=== PATIENT | male | born 1950 | race Caucasian/White ===

== ENCOUNTER → 2016-08-10 | Day surgery (SDC) | payer OTHER, MEDICARE ==
[~2016-08-10] VITALS: Ht 177.8 cm; Wt 60.0 kg
[~2016-08-10] MED LIST: ACETAMINOPHEN/HYDROcodone 325 MG/5 MG TAB PO PRN; AMLO5TAB2 PO; AMPICILLIN 1 GM/NS 100 ML IV SCH; DEXA2TAB PO; DEXAMETHASONE SOD PHOS 4 MG/ML VIAL ONE; DIAZ5 PO; DO NOT ADM ANY ANTICOAGULANT DRUGS XX PRN; FAMOTIDINE 20 MG/2 ML VIAL ONE; FENT100D T-DERMAL; FERR325T PO; FLUC100T2 PO; GENTAMICIN/SOD CHL 80 MG/100 ML IV SCH; GETGO ROLLING W1 MI1; HYDROmorphone HCL PF 2 MG/ML VIAL ONE; INSULIN HUMAN REGULAR 1,000 UNITS/10 ML VIAL SQ PRN; IOHEXOL 300 MG/ML 50 ML BTL (for RAD DIAG) OTHER ONE; LACTATED RINGER'S 1000 ML IV SCH; MEGE40S PO; METO25TA3 PO; METOPROLOL TARTRATE 25 MG TAB PO PRN; MIDAZOLAM HCL 2 MG/2 ML VIAL ONE; NITR2OIN TOPICAL; OMEP20TA PO; ONDANSETRON HCL 4 MG/2 ML VIAL IV PUSH PRN; ONDANSETRON HCL 4 MG/2 ML VIAL ONE; OXYC-396 PO; PROPOFOL 200 MG/20 ML AMP IV ONE; PROT40TA PO; SODIUM CHLORID 0.9% 500 ML IV SCH; SUGAMMADEX SODIUM 200 MG/2 ML VIAL IV PUSH ONE; fentaNYL CITRATE 250 MCG/5 ML AMP ONE
[2016-08-10 09:30] LABS: AUTOMATED NEUTROPHIL # 14.4 TH/MM3 (1.8-7.7); BASOPHIL % 0.2 % (0.0-2.0); EOSINOPHIL # 0.1 TH/MM3 (0-0.4); EOSINOPHIL % 0.3 % (0.0-4.0); LYMPH % 10.6 % (9.0-44.0); LYMPHOCYTE # 1.9 TH/MM3 (1.0-4.8); MEAN CELL VOLUME 82.3 FL (80.0-100.0); MEAN CORPUSCULAR HEMOGLOBIN 27.8 PG (27.0-34.0); MEAN CORPUSCULAR HGB CONC 33.7 % (32.0-36.0); NEUT % 80.9 % (16.0-70.0); PLATELET COUNT 408 TH/MM3 (150-450); RED BLOOD COUNT 3.77 MIL/MM3 (4.50-5.90); RED CELL DISTRIBUTION WIDTH 17.8 % (11.6-17.2); WHITE BLOOD COUNT 17.8 TH/MM3 (4.0-11.0)
[2016-08-10 09:31] LABS: HEMO FLAGS AUTO DIFF
[2016-08-10 09:38] VITALS: BP 156/78; PULSE 99; RESP 18; TEMP 97.7; O2SAT 97
[2016-08-10 10:04] LABS: MYELOCYTES 2 % (0-0); NEUTROPHIL # MANUAL DIFF 14.8 TH/MM3 (1.8-7.7); POLYS (SEG NEUTROPHILS) 81 % (16-70); SCAN/DIFF FINAL DIFF MANUAL; WBC DIFF SAMPLE 100
[2016-08-10 10:05] LABS: BICARBONATE 24.5 MEQ/L (21.0-32.0); PLATELET ESTIMATE SMEAR HIGH (NORMAL); PLATELET MORPHOLOGY NORMAL (NORMAL); POTASSIUM 3.9 MEQ/L (3.5-5.1)
[2016-08-10 12:42] VITALS: BP 120/62; PULSE 84; RESP 16; TEMP 99.1; O2SAT 93
--- NOTE | 2016-08-12 19:41 | MP ---
cc: RAMA TALBTO DATE OF SURGERY: 08/10/2016. PREOPERATIVE DIAGNOSIS: Left hydronephrosis with a retained stent in place and a solitary functioning kidney. POSTOPERATIVE DIAGNOSIS: Left hydronephrosis with a retained stent in place and a solitary functioning kidney. OPERATIVE PROCEDURE PERFORMED: Cystoscopy, left retrograde, left double-J stent insertion. SURGEON: Rama Talbot MD. ANESTHESIA: General LMA FLUIDS: One liter crystalloid. ESTIMATED BLOOD LOSS: No blood loss. COMPLICATIONS: No complications. DISPOSITION: He tolerated the procedure well and was transferred to the recovery room in stable condition. DRAINS: A 24 cm left double-J stent. INDICATIONS FOR THE PROCEDURE: Rajendra Henry is a 66-year-old male with history of colon cancer which involved the right kidney. He underwent colon resection by Dr. Siegel with a right nephrectomy by myself approximately a year and half ago. He does have a history of chronic renal insufficiency of the left kidney and has been stent-dependent in the past. He is here today to undergo cystoscopy and left double-J stent change. The risks and benefits were discussed including bleeding and infection and he was willing to proceed. DESCRIPTION OF THE PROCEDURE IN DETAIL: The patient was brought to the operating room and identified by myself as Rajendra Henry. He was placed in the dorsal spine position and prepped and draped in the usual sterile fashion. He received pre-procedure antibiotics and general LMA anesthesia was administered. A 22-Ugandan cystoscope was inserted in the bladder. A roberts cystoscopy did not show any abnormalities in the bladder. Using alligator grasper, the stent was grasped and brought to the urethral meatus. An 035 Sensor wire was then passed through the stent leaving the wire in good position. The stent was removed. A 5-Ugandan open-ended catheter was inserted over a wire and then the wire was removed. Retrograde study was showing filling of the ureter with some dilatation of the collecting system and hydronephrosis noted. The contrast material was having some trouble getting across the UPJ area. Once that was done, then the 035 Sensor wire was passed through the open-end catheter leaving a good curl in the kidney. The 5-Ugandan open catheter was then removed. The cystoscope was back-loaded over the wire and a 24 cm 6-Ugandan left double-J stent was placed with good curl in the kidney and a good curl in the bladder. The bladder was evacuated. He tolerated the procedure well, was awoken and transferred to the recovery room in stable addition. The patient will follow up in the office in six weeks and will obtain a renal scan at that time to determine function of that left kidney and we will decide at that time if stent removal is prudent to do at that time. Rama OSEI/CARLENE /11:21 AM /7:31 PM
== END | disposition home or self-care (01) ==
LOC: HSDC 08:37
PROVIDERS: ATTEND Urology
DX: N13.30 Unspecified hydronephrosis (principal); Q60.0 Renal agenesis, unilateral
CPT/HCPCS: 00910; 52332; 74420; 80048; 85007; 85027; C1769; J0290; J1100; J1580; J2250; J2405; J3010; J7120; Q9967; J1170

== ENCOUNTER 2016-10-24 12:18 | Inpatient (IN) | payer MEDICARE, OTHER ==
[2016-10-24] VITALS (10 sets, daily range): BP systolic 106–144; BP diastolic 60–78; PULSE 95–106; RESP 16–18; TEMP 98–98.7; O2SAT 98–100
[~2016-10-24] VITALS: Ht 177.8 cm; Wt 54.7 kg
[~2016-10-24 12:18] MED LIST changes: -ACETAMINOPHEN/HYDROcodone 325 MG/5 MG TAB PO PRN; -AMPICILLIN 1 GM/NS 100 ML IV SCH; -DEXAMETHASONE SOD PHOS 4 MG/ML VIAL ONE; -DO NOT ADM ANY ANTICOAGULANT DRUGS XX PRN; -FAMOTIDINE 20 MG/2 ML VIAL ONE; -FERR325T PO; -FLUC100T2 PO; -GENTAMICIN/SOD CHL 80 MG/100 ML IV SCH; -GETGO ROLLING W1 MI1; -HYDROmorphone HCL PF 2 MG/ML VIAL ONE; -INSULIN HUMAN REGULAR 1,000 UNITS/10 ML VIAL SQ PRN; -IOHEXOL 300 MG/ML 50 ML BTL (for RAD DIAG) OTHER ONE; -LACTATED RINGER'S 1000 ML IV SCH; -METO25TA3 PO; -METOPROLOL TARTRATE 25 MG TAB PO PRN; -MIDAZOLAM HCL 2 MG/2 ML VIAL ONE; -NITR2OIN TOPICAL; -ONDANSETRON HCL 4 MG/2 ML VIAL IV PUSH PRN; -ONDANSETRON HCL 4 MG/2 ML VIAL ONE; -PROPOFOL 200 MG/20 ML AMP IV ONE; -PROT40TA PO; -SODIUM CHLORID 0.9% 500 ML IV SCH; -SUGAMMADEX SODIUM 200 MG/2 ML VIAL IV PUSH ONE; -fentaNYL CITRATE 250 MCG/5 ML AMP ONE
[2016-10-24] MEDS ORDERED: SODIUM CHLOR 0.9% 1000 ML INJ 1,000 ML IV SCH (13:04)
[2016-10-24] MEDS ORDERED: ONDANSETRON HCL 4 MG/2 ML VIAL IVP ONE (13:15)
[2016-10-24] MEDS ORDERED: HYDROmorphone HCL PF 1 MG/ML VIAL IV ONE (13:15)
[2016-10-24] MEDS ORDERED: PANTOPRAZOLE SODIUM 40 MG VIAL IVP ONE (13:15)
[2016-10-24 13:25] LABS: AUTOMATED NEUTROPHIL # 16.4 TH/MM3 (1.8-7.7); BASOPHIL % 0.1 % (0.0-2.0); LYMPH % 4.1 % (9.0-44.0); LYMPHOCYTE # 0.7 TH/MM3 (1.0-4.8); MEAN CELL VOLUME 70.9 FL (80.0-100.0); MEAN CORPUSCULAR HEMOGLOBIN 21.7 PG (27.0-34.0); MEAN CORPUSCULAR HGB CONC 30.6 % (32.0-36.0); MONO % 4.3 % (0.0-8.0); NEUT % 91.5 % (16.0-70.0); PLATELET COUNT 581 TH/MM3 (150-450); RED BLOOD COUNT 2.22 MIL/MM3 (4.50-5.90); WHITE BLOOD COUNT 17.9 TH/MM3 (4.0-11.0)
[2016-10-24 13:27] LABS: HEMO FLAGS AUTO DIFF
[2016-10-24 13:29] LABS: HEMATOCRIT 15.7 % (39.0-51.0)
[2016-10-24 13:33] LABS: APTT (PATIENT) 27.6 SEC (24.3-30.1); PROTHROMBIN TIME - PATIENT 10.6 SEC (9.8-11.6)
[2016-10-24 13:40] LABS: ANION GAP 10 MEQ/L (5-15); AST (GOT) 7 U/L (15-37); BICARBONATE 25.8 MEQ/L (21.0-32.0); BLOOD UREA NITROGEN 32 MG/DL (7-18); CHLORIDE 95 MEQ/L (98-107); GLOMERULAR FILTRATION RATE 40 ML/MIN (>89); POTASSIUM 3.5 MEQ/L (3.5-5.1); SODIUM (NA) 131 MEQ/L (136-145)
[2016-10-24 13:43] LABS: ALKALINE PHOSPHATASE 85 U/L (45-117); ALT (GPT) 12 U/L (12-78); TOTAL BILIRUBIN ADULT 0.2 MG/DL (0.2-1.0)
[2016-10-24] MEDS ORDERED: LIDOCAINE VISCOUS 2% SOLN 15 ML UDC PO ONE (13:45)
[2016-10-24] MEDS ORDERED: HYDROmorphone HCL PF 1 MG/ML VIAL IVS ONE (13:45)
[2016-10-24] MEDS ORDERED: ALUMINUM/MAGNESIUM/SIMETH 30 ML CUP PO ONE (13:45)
--- NOTE | 2016-10-24 14:10 | PD ---
HPI Chief Complaint: Dizziness Time Seen by Provider: 13:57 Travel History International Travel<30 days: No Contact w/Intl Traveler<30days: No Traveled to known affect area: No History of Present Illness HPI 66-year-old male presents to the emergency department complaining of multiple complaints. He states he's been feeling progressively more weak since August of this past year. Patient has a history of colon cancer with a right sided hemicolectomy in August 2014, and he reports he took out his right kidney as well. In August of this year he had a stent replaced. He states since that time he has not really been doing very well. He started having profound weakness, start losing his balance. Over the past couple days she's gotten weak to where he can't walk. He fell to the floor today. He is also having increased dizziness and vertigo when he stands. He has for the past several days been having epigastric pain and left-sided chest pain. He's not had these symptoms before. He has been anemic before card blood transfusion. Patient denies any change in his bowel movements or dark black stools. Patient does take 2 mg of dexamethasone daily for back problems, and has for months to a year or 2. History Past Medical History Narrative Medical History of colon cancer, right colectomy, Hypertension and peripheral vascular disease Chronic back pain, on daily steroids Tetanus Vaccination: > 5 Years Influenza Vaccination: Yes Social History Alcohol Use: No Tobacco Use: Yes (1/2 PACK PER DAY) Allergies-Medications (Allergen,Severity, Reaction): Coded Allergies: Levaquin (Verified Allergy, Severe, MUSCLE WEAKNESS AND BLURRED VISION, ) Morphine (Verified Allergy, Severe, hallucinating, 10/24/16) Sulfa (Verified Allergy, Severe, nausea, 10/24/16) Reported Meds & Prescriptions Reported Meds & Active Scripts Active Reported Fentanyl Patch 72 HR (Fentanyl) 100 Mcg/Hr Patch 100 Mcg T-DERMAL Q72H Remove old patch when new one placed. Omeprazole 20 Mg Tab 20 Mg PO DAILY Dexamethasone 2 Mg Tab 2 Mg PO DAILY Oxycodone (Oxycodone HCl) 20 Mg Tab 20 Mg PO Q2HR PRN Megace Liq (Megestrol Acetate) 40 Mg/Ml Susp 10 Ml PO BID Amlodipine (Amlodipine Besylate) 5 Mg Tab 5 Mg PO DAILY Review of Systems Except as stated in HPI: all other systems reviewed are Neg Physical Exam Narrative GENERAL: 66-year-old man, chronically ill-appearing, pale. SKIN: Focused skin assessment warm/dry. Marked conjunctival pallor. HEAD: Atraumatic. Normocephalic. EYES: Pupils equal and round. No scleral icterus. No injection or drainage. ENT: No nasal bleeding or discharge. Mucous membranes pink and moist. NECK: Trachea midline. No JVD. CARDIOVASCULAR: Regular rate and rhythm. No murmur appreciated. RESPIRATORY: No accessory muscle use. Clear to auscultation. Breath sounds equal bilaterally. GASTROINTESTINAL: Abdomen soft, non-tender, nondistended. Hepatic and splenic margins not palpable. MUSCULOSKELETAL: No obvious deformities. No edema. NEUROLOGICAL: Awake and alert. No obvious cranial nerve deficits. Motor grossly within normal limits. Normal speech. RECTAL: Dark black stool. Guaiac positive. Data Data Last Documented VS Vital Signs Date Time Temp Pulse Resp B/P Pulse Ox O2 Delivery O2 Flow Rate FiO2 10/24/16 13:48 98 18 128/64 98 Room Air 10/24/16 12:32 98.1 Orders Electrocardiogram (10/24/16 ) Complete Blood Count With Diff (10/24/16 13:04) Comprehensive Metabolic Panel (10/24/16 13:04) Lipase (10/24/16 13:04) Prothrombin Time / Inr (Pt) (10/24/16 13:04) Act Partial Throm Time (Ptt) (10/24/16 13:04) Type And Screen (10/24/16 13:04) Red Blood Cells (Rbc) (10/24/16 13:04) Ecg Monitoring (10/24/16 13:04) Iv Access Insert/Monitor (10/24/16 13:04) Oximetry (10/24/16 13:04) Ondansetron Inj (Zofran Inj) (10/24/16 13:15) Pantoprazole Inj (Protonix Inj) (10/24/16 13:15) Sodium Chlor 0.9% 1000 Ml Inj (Ns 1000 M (10/24/16 13:04) Sodium Chloride 0.9% Flush (Ns Flush) (10/24/16 13:15) Hydromorphone Pf Inj (Dilaudid Pf Inj) (10/24/16 13:15) Hydromorphone Pf Inj (Dilaudid Pf Inj) (10/24/16 13:45) Al-Mag Hy-Si 40-40-4 Mg/Ml Liq (Mag-Al P (10/24/16 13:45) Lidocaine 2% Viscous (Xylocaine 2% Visco (10/24/16 13:45) Blood Product Administration .UPON TRANSFUSION (10/24/16 13:38) Troponin I (10/24/16 13:40) Consult Gastroenterology (10/24/16 ) Labs Laboratory Tests Test 10/24/16 13:00 White Blood Count 17.9 TH/MM3 Red Blood Count 2.22 MIL/MM3 Hemoglobin 4.8 GM/DL Hematocrit 15.7 % Mean Corpuscular Volume 70.9 FL Mean Corpuscular Hemoglobin 21.7 PG Mean Corpuscular Hemoglobin 30.6 % Concent Red Cell Distribution Width 17.0 % Platelet Count 581 TH/MM3 Mean Platelet Volume 7.1 FL Neutrophils (%) (Auto) 91.5 % Lymphocytes (%) (Auto) 4.1 % Monocytes (%) (Auto) 4.3 % Eosinophils (%) (Auto) 0.0 % Basophils (%) (Auto) 0.1 % Neutrophils # (Auto) 16.4 TH/MM3 Lymphocytes # (Auto) 0.7 TH/MM3 Monocytes # (Auto) 0.8 TH/MM3 Eosinophils # (Auto) 0.0 TH/MM3 Basophils # (Auto) 0.0 TH/MM3 CBC Comment AUTO DIFF Prothrombin Time 10.6 SEC Prothromb Time International 1.0 RATIO Ratio Activated Partial 27.6 SEC Thromboplast Time Sodium Level 131 MEQ/L Potassium Level 3.5 MEQ/L Chloride Level 95 MEQ/L Carbon Dioxide Level 25.8 MEQ/L Anion Gap 10 MEQ/L Blood Urea Nitrogen 32 MG/DL Creatinine 1.73 MG/DL Estimat Glomerular Filtration 40 ML/MIN Rate Random Glucose 175 MG/DL Calcium Level 8.5 MG/DL Total Bilirubin 0.2 MG/DL Aspartate Amino Transf 7 U/L (AST/SGOT) Alanine Aminotransferase 12 U/L (ALT/SGPT) Alkaline Phosphatase 85 U/L Total Protein 6.4 GM/DL Albumin 2.4 GM/DL Lipase 700 U/L Blood Type B POSITIVE Antibody Screen NEGATIVE Crossmatch Leukocyte-Reduced Red Blood Cells Blood Bank Comment MDM Medical Decision Making Medical Screen Exam Complete: Yes Emergency Medical Condition: Yes Interpretation(s) My review of EMS EKG: Widespread ST depression suggestive of ischemia, sinus tachycardia rate of 140s or so. My review of EKG here: Sinus tachycardia rate 100, normal axis, normal intervals , widespread more mild ST depressions, still suggestive of ischemia. LABS: CBC remarkable for mild leukocytosis, hemoglobin 4.8 CMP remarkable for elevated BUN/creatinine 32/1.73 Lipase 700 Troponin Coags unremarkable Differential Diagnosis Marked anemia, gastritis, peptic ulcer disease, malignancy, spinal cord compression, sepsis, other Narrative Course Medical decision making This 66-year-old male presents emergency department multiple complaints including mostly generalized weakness and falls dizziness and now some chest pain. Unclear if this chest pain is from gastritis and peptic ulcer disease or may represent myocardial ischemia in the setting of severe anemia. Hemoglobin confirms severe anemia as evident on exam. Guaiac is positive making gastritis or peptic ulcer disease related to his dexamethasone used to most likely culprit. We'll give transfusion, PPI, fluids, will admit patient. I spoke with Dr. Daily 2, GI for routine consult. Diagnosis Primary Impression: Upper GI bleed Additional Impressions: Severe anemia Chest pain Rajendra Herrera MD Oct 24, 2016 14:09
[2016-10-24 14:11] LABS: SCAN/DIFF AUTO DIFF CONFIRMED
[2016-10-24] MEDS: SODIUM CHLORIDE 0.9% FLUSH 10 ML FLUSH IVF PRN (14:14)
--- NOTE | 2016-10-24 16:18 | RADRPT ---
EXAM DATE/TIME: 10/24/2016 14:46 [facility] COMPARISON: CHEST SINGLE AP, May 12, 2015, 15:51. INDICATIONS : Chest pain, short of breath. MEDICAL HISTORY : colon/rectal cancer, right kidney cancer SURGICAL HISTORY : right kidney removed ENCOUNTER: Initial ACUITY: 2 days PAIN SCORE: Non-responsive. LOCATION: Bilateral chest FINDINGS: There is a questionable non-consolidative infiltrate in the right infrahilar region. There is a foca l rounded masslike opacity in the right midlung measuring 2.0 cm which is a new finding since prior c hest x-ray 05/12/15. The left lung is clear. The heart is normal size. Both hemidiaphragms are well delineated. Prominent degenerative changes in the a.c. joints, stable. CONCLUSION: 1. There is a new 2 cm mass in the right midlung. 2. Possible non-consolidative infiltrate right infrahilar region. Antione Rodríguez MD on October 24, 2016 at 16:15 Board Certified Radiologist. This report was verified electronically.
[2016-10-24 16:52] LABS: FERRITIN 20 NG/ML (26-388); TRANSFERRIN IRON PROFILE 212 MG/DL (200-360)
--- NOTE | 2016-10-24 17:51 | PD.CONS ---
HPI History of Present Illness This is a 66 year old wi complicated by development of an abscess and therefore he did not receive th a hx with a hx of stage IV Colon Cancer, s/p resection in 2014. His postoperative course was complicated by development of an abscess and therefore he did not receive adjuvant therapy. He was then found to have recurrent disease and had elected not to receive chemotherapy and was enrolled on hospice care. However, he was then found to have left hydronephrosis with a retained stent in place and a solitary functioning kidney and underwent a cystoscopy, left retrograde, left double-J stent insertion with Dr. Talbot. He has continued to see Dr. Talbot for this. He reports that since his cystoscopy and stent placement in August, he has had generalized weakness and dizziness. This has been worsening since that time. He has been taking dexamethasone at home for back pain, but stopped taking this recently when he started having severe indigestion/heartburn/chest pain. He states that this does not really seem to be related to food or exertion- it comes at any time and sometimes radiates down his arms. He has gradually been losing weight. He reports he has some back pain that he takes pain meds as needed for at home. , he reports that he became more weak and dizzy and fell to the ground (did not lose consciousness). He reports that he and his knew something was wrong and prayed over this and ultimately decided that they wanted him to come to the ER to find out what was going on. He reports that he was on hospice care up until today, when it was revoked so that he could come to the ER. In the ER, he was found to have severe anemia with an HH of 4.8/15.7 on admission. Guaiac was positive in the ER. He denies having any melena, hematochezia, nausea, vomiting. He does report that he has been having severe indigestion that was relieved with dilaudid and GI cocktail in the ER. He states that he needs to find out where the bleeding is coming from and would like to have an endoscopy to find out. However, he would like to discuss this over with his kim to make sure she is okay with this. (Nancy Chawla) PFSH Past Medical History Anxiety Arthritis Kidney disease History of kidney stones Hydronephrosis Stage IV colon cancer History of perinephric abscess Pulmonary nodule Past Surgical History Right hemicolectomy Right nephrectomy Right adrenalectomy Exploratory laparotomy Examined undder anesthesia for right flank abscess Percutaneous drainage of right flank abscess Nephrostomy tube Cystoscopy and stent placement Appendectomy Biopsy Colonoscopy Hernia repair (Nancy Chawla) Coded Allergies: Levaquin (Verified Allergy, Severe, MUSCLE WEAKNESS AND BLURRED VISION, ) Morphine (Verified Allergy, Severe, hallucinating, 10/24/16) Sulfa (Verified Allergy, Severe, nausea, 10/24/16) Medications Allergies Coded Allergies Type Severity Reaction Last Updated Verified Levaquin Allergy Severe MUSCLE WEAKNESS AND BLURRED VISION 10/24/16 Yes Morphine Allergy Severe hallucinating 10/24/16 Yes Sulfa Allergy Severe nausea 10/24/16 Yes Active Scripts Medications Dose Route/Sig Days Date Category Dose Instructions Fentanyl Patch 72 HR (Fentanyl) 100 Mcg/Hr Patch 100 Mcg T-DERMAL Q72H 08/10/16 Reported Remove old patch when new one placed. Omeprazole 20 Mg Tab 20 Mg PO DAILY 08/10/16 Reported Dexamethasone 2 Mg Tab 2 Mg PO DAILY 08/10/16 Reported Oxycodone (Oxycodone HCl) 20 Mg Tab 20 Mg PO Q2HR PRN 05/17/16 Reported Megace Liq (Megestrol Acetate) 40 Mg/Ml Susp 10 Ml PO BID 05/17/16 Reported Amlodipine (Amlodipine Besylate) 5 Mg Tab 5 Mg PO DAILY 05/17/16 Reported Family History Noncontributory Social History 1/2 PPD. No ETOH (Nancy Chawla) Review of Systems Constitutional: COMPLAINS OF: Fatigue, Weight loss, Dizziness, Change in appetite Respiratory: DENIES: Cough Cardiovascular: COMPLAINS OF: Chest pain Gastrointestinal: COMPLAINS OF: Heartburn, DENIES: Abdominal pain, Black stools, Bloody stools, Constipation, Diarrhea, Nausea, Vomiting Musculoskeletal: COMPLAINS OF: Joint pain, Back pain Psychiatric: DENIES: Confusion (Nancy Chawla) GI Exam Vitals I&O Vital Signs Date Time Temp Pulse Resp B/P Pulse Ox O2 Delivery O2 Flow Rate FiO2 10/24/16 17:35 98.5 97 16 131/62 100 10/24/16 16:26 98.0 92 17 110/68 99 10/24/16 15:10 98.1 96 18 106/68 98 Room Air 10/24/16 14:55 98.2 102 18 118/60 98 Room Air 10/24/16 14:16 17 10/24/16 13:48 98 18 128/64 98 Room Air 10/24/16 13:42 17 10/24/16 13:05 18 98 Room Air 10/24/16 12:41 106 17 10/24/16 12:32 98.1 106 18 124/78 99 I/O 10/23/16 10/23/16 10/23/16 10/24/16 10/24/16 10/24/16 07:00 15:00 23:00 07:00 15:00 23:00 Output Total 700 ml Balance -700 ml Output Urine Total 700 ml # Voids 1 # Bowel Movements 0 Imaging Last Impressions Chest X-Ray 10/24/16 0000 Signed Impressions: Service Date/Time: Monday, October 24, 2016 14:46 - CONCLUSION: 1. There is a new 2 cm mass in the right midlung. 2. Possible non-consolidative infiltrate right infrahilar region. Antione Rodríguez MD Laboratory Test 10/24/16 13:00 White Blood Count 17.9 TH/MM3 Red Blood Count 2.22 MIL/MM3 Hemoglobin 4.8 GM/DL Hematocrit 15.7 % Mean Corpuscular Volume 70.9 FL Mean Corpuscular Hemoglobin 21.7 PG Mean Corpuscular Hemoglobin 30.6 % Concent Red Cell Distribution Width 17.0 % Platelet Count 581 TH/MM3 Mean Platelet Volume 7.1 FL Neutrophils (%) (Auto) 91.5 % Lymphocytes (%) (Auto) 4.1 % Monocytes (%) (Auto) 4.3 % Eosinophils (%) (Auto) 0.0 % Basophils (%) (Auto) 0.1 % Neutrophils # (Auto) 16.4 TH/MM3 Lymphocytes # (Auto) 0.7 TH/MM3 Monocytes # (Auto) 0.8 TH/MM3 Eosinophils # (Auto) 0.0 TH/MM3 Basophils # (Auto) 0.0 TH/MM3 CBC Comment AUTO DIFF Differential Comment AUTO DIFF CONFIRMED Prothrombin Time 10.6 SEC Prothromb Time International 1.0 RATIO Ratio Activated Partial 27.6 SEC Thromboplast Time Sodium Level 131 MEQ/L Potassium Level 3.5 MEQ/L Chloride Level 95 MEQ/L Carbon Dioxide Level 25.8 MEQ/L Anion Gap 10 MEQ/L Blood Urea Nitrogen 32 MG/DL Creatinine 1.73 MG/DL Estimat Glomerular Filtration 40 ML/MIN Rate Random Glucose 175 MG/DL Calcium Level 8.5 MG/DL Iron Level 9 MCG/DL Total Iron Binding Capacity 297 MCG/DL Percent Iron Saturation 3.0 % Ferritin 20 NG/ML Total Bilirubin 0.2 MG/DL Aspartate Amino Transf 7 U/L (AST/SGOT) Alanine Aminotransferase 12 U/L (ALT/SGPT) Alkaline Phosphatase 85 U/L Troponin I 0.18 NG/ML Total Protein 6.4 GM/DL Albumin 2.4 GM/DL Lipase 700 U/L Vitamin B12 Level 1360 PG/ML Folate GREATER THAN 20.0 NG/ML Blood Type B POSITIVE Antibody Screen NEGATIVE Crossmatch Leukocyte-Reduced Red Blood Cells Blood Bank Comment Physical Examination HEENT: Normocephalic; atraumatic; no jaundice. CHEST: CTA CARDIAC: RRR ABDOMEN: Soft, nondistended, nontender; no hepatosplenomegaly; bowel sounds are present in all four quadrants. EXTREMITIES: No clubbing, cyanosis, or edema. SKIN: Multiple ecchymotic areas COOK JELLY: No focal deficits; alert and oriented times three. (Nancy Chawla) Assessment and Plan Plan ASSESSMENT: - Severe anemia. Came to ER for worsening weakness, dizziness, indigestion. Found to have severe anemia with HH of 4.8/15.7 on admission. Guaiac was positive in the ER. He denies having any melena, hematochezia, nausea, vomiting. He does report that he has been having severe indigestion- not related to food intake/exertion, relieved with dilaudid and GI cocktail in the ER. Of note he has been taking dexamethasone up until recently when he started having the severe indigestion. He revoked his hospice today to come to the ER and find out why he was having his symptoms. He would like to have an EGD to find out where the bleeding is coming from. However, he would like to talk this over with his . - Severe indigestion, not related to food or exertion. Relieved with GI Cocktail and dilaudid in ER. - Stage IV Colon cancer. S/P resection in 2014. His postoperative course was complicated by development of an abscess and therefore he did not receive adjuvant therapy. He was then found to have recurrent disease and had elected not to receive chemotherapy and was enrolled on hospice care. He revoked this today in order to come to the ER and find out what was causing for his symptoms - Recent left hydronephrosis, he sees Dr. Talbot, He had cystoscopy, left retrograde, left double-J stent insertion in Aug. PLAN: - Possible EGD in am- pt reports that he would like to have this done and would like to know why he is having anemia/indigestion, but would like to make sure this is okay with his - Clear liquids - NPO after MN - Agree with transfusion - Monitor HH - Pt seen and examined by Dr. Matthews and myself and this note is written on her behalf (Nancy Chawla) Physician Comments seen, examined agree with above (Candi Matthews MD) Nancy Chawla Oct 24, 2016 17:51 Candi Matthews MD Oct 24, 2016 19:07
--- NOTE | 2016-10-24 19:06 | HHI.HP ---
[facility] Primary Care Physician Non-Staff Admission Diagnosis anemia, upper GI bleed, ischemic chest pain Diagnoses: Chief Complaint: Generalized weakness Travel History International Travel<30 Days: No Contact w/Intl Traveler <30 Da: No Traveled to Known Affected Are: No History of Present Illness Patient is a 66-year-old male with known history of colorectal cancer stage IV had colorectal surgery postop complicated by development of abscess and therefore did not receive any adjuvant chemotherapy. Patient also have baseline chronic kidney insufficiency baseline creatinine of 2.0. Patient presented to the ER complaining of generalized weakness has been going on for the past 6-8 weeks now. To the point that patient had a near syncopal episode yesterday. Patient states that he is more into homeopathic medication. Patient also has been complaining of right flank pain denies any hematemesis melena hematochezia hematuria or any bleeding tendencies. Persistence of this generalized weakness prompted consult to ER where on evaluation was noted to have a hemoglobin of 4.8 and hematocrit of 15.7. Patient is now admitted for further evaluation and management. Patient also reports of having chest discomfort/feeling of indigestion or reflux description. Denies any nausea or vomiting. EKG shows sinus tachycardia with some minimal ST depression. Patient on chronic dexamethasone 4 chronic back pain Review of Systems Constitutional: DENIES: Diaphoretic episodes, Fatigue, Fever, Weight gain, Weight loss, Chills, Dizziness, Change in appetite, Night Sweats Endocrine: DENIES: Heat/cold intolerance, Polydipsia, Polyuria, Polyphagia Eyes: DENIES: Blurred vision, Diplopia, Eye inflammation, Eye pain, Vision loss , Photosensitivity, Double Vision Ears, nose, mouth, throat: DENIES: Tinnitus, Hearing loss, Vertigo, Nasal discharge, Oral lesions, Throat pain, Hoarseness, Ear Pain, Running Nose, Epistaxis, Sinus Pain, Toothache, Odynophagia Respiratory: DENIES: Apneas, Cough, Snoring, Wheezing, Hemoptysis, Sputum production, Shortness of breath Cardiovascular: DENIES: Chest pain, Palpitations, Syncope, Dyspnea on Exertion , PND, Lower Extremity Edema, Orthopnea, Claudication Gastrointestinal: DENIES: Abdominal pain, Black stools, Bloody stools, Constipation, Diarrhea, Nausea, Vomiting, Difficulty Swallowing, Anorexia Genitourinary: DENIES: Sexual dysfunction, Urinary frequency, Urinary incontinence, Urgency, Hematuria, Dysuria, Nocturia, Penile Discharge, Testicular Pain, Testicular Swelling Musculoskeletal: DENIES: Joint pain, Muscle aches, Stiffness, Joint Swelling, Back pain, Neck pain Integumentary: DENIES: Abnormal pigmentation, Nail changes, Pruritus, Rash Hematologic/lymphatic: DENIES: Bruising, Lymphadenopathy Immunologic/allergic: DENIES: Eczema, Urticaria Neurologic: DENIES: Abnormal gait, Headache, Localized weakness, Paresthesias, Seizures, Speech Problems, Tremor, Poor Balance Psychiatric: DENIES: Anxiety, Confusion, Mood changes, Depression, Hallucinations, Agitation, Suicidal Ideation, Homicidal Ideation, Delusions Past Family Social History Past Medical History Anxiety Arthritis Kidney disease History of kidney stones Hydronephrosis Stage IV colon cancer History of perinephric abscess Pulmonary nodule Past Surgical History Right hemicolectomy Right nephrectomy Right adrenalectomy Exploratory laparotomy Examined undder anesthesia for right flank abscess Percutaneous drainage of right flank abscess Nephrostomy tube Cystoscopy and stent placement Appendectomy Biopsy Colonoscopy Hernia repair Reported Medications Roxicodone, dexamethasone, amlodipine, Megace- but per patient noncompliant Some homeopathic medication Allergies: Coded Allergies: Levaquin (Verified Allergy, Severe, MUSCLE WEAKNESS AND BLURRED VISION, ) Morphine (Verified Allergy, Severe, hallucinating, 10/24/16) Sulfa (Verified Allergy, Severe, nausea, 10/24/16) Family History Noncontributory Social History 1/2 PPD. Past history of alcohol use states heavy quit 2 years ago History no history of substance abuse Physical Exam Vital Signs Vital Signs Date Time Temp Pulse Resp B/P Pulse Ox O2 Delivery O2 Flow Rate FiO2 10/24/16 17:49 98.5 101 16 142/65 100 10/24/16 17:35 98.5 97 16 131/62 100 10/24/16 17:30 98.5 98 18 131/68 100 10/24/16 16:26 98.0 92 17 110/68 99 10/24/16 15:10 98.1 96 18 106/68 98 Room Air 10/24/16 14:55 98.2 102 18 118/60 98 Room Air 10/24/16 14:16 17 10/24/16 13:48 98 18 128/64 98 Room Air 10/24/16 13:42 17 10/24/16 13:05 18 98 Room Air 10/24/16 12:41 106 17 10/24/16 12:32 98.1 106 18 124/78 99 Physical Exam GENERAL: This is a well-nourished, well-developed patient, in no apparent distress. SKIN: No rashes, ecchymoses or lesions. Cool and dry. HEAD: Atraumatic. Normocephalic. No temporal or scalp tenderness. EYES: Pupils equal round and reactive. Extraocular motions intact. No scleral icterus. No injection or drainage. ENT: Nose without bleeding, purulent drainage or septal hematoma. Throat without erythema, tonsillar hypertrophy or exudate. Uvula midline. Airway patent. NECK: Trachea midline. No JVD or lymphadenopathy. Supple, nontender, no meningeal signs. CARDIOVASCULAR: Regular rate and rhythm without murmurs, gallops, or rubs. RESPIRATORY: Clear to auscultation. Breath sounds equal bilaterally. No wheezes , rales, or rhonchi. GASTROINTESTINAL: Abdomen soft, non-tender, nondistended. No guarding. MUSCULOSKELETAL: Extremities without clubbing, cyanosis, or edema. No joint tenderness, effusion, or edema noted. No calf tenderness. Negative Homans sign bilaterally. NEUROLOGICAL: Awake and alert. Cranial nerves II through XII intact. Motor and sensory grossly within normal limits. Five out of 5 muscle strength in all muscle groups. Normal speech. Laboratory Laboratory Tests Test 10/24/16 13:00 White Blood Count 17.9 Red Blood Count 2.22 Hemoglobin 4.8 Hematocrit 15.7 Mean Corpuscular Volume 70.9 Mean Corpuscular Hemoglobin 21.7 Mean Corpuscular Hemoglobin 30.6 Concent Red Cell Distribution Width 17.0 Platelet Count 581 Mean Platelet Volume 7.1 Neutrophils (%) (Auto) 91.5 Lymphocytes (%) (Auto) 4.1 Monocytes (%) (Auto) 4.3 Eosinophils (%) (Auto) 0.0 Basophils (%) (Auto) 0.1 Neutrophils # (Auto) 16.4 Lymphocytes # (Auto) 0.7 Monocytes # (Auto) 0.8 Eosinophils # (Auto) 0.0 Basophils # (Auto) 0.0 CBC Comment AUTO DIFF Differential Comment AUTO DIFF CONFIRMED Prothrombin Time 10.6 Prothromb Time International 1.0 Ratio Activated Partial 27.6 Thromboplast Time Sodium Level 131 Potassium Level 3.5 Chloride Level 95 Carbon Dioxide Level 25.8 Anion Gap 10 Blood Urea Nitrogen 32 Creatinine 1.73 Estimat Glomerular Filtration 40 Rate Random Glucose 175 Calcium Level 8.5 Iron Level 9 Total Iron Binding Capacity 297 Percent Iron Saturation 3.0 Ferritin 20 Total Bilirubin 0.2 Aspartate Amino Transf 7 (AST/SGOT) Alanine Aminotransferase 12 (ALT/SGPT) Alkaline Phosphatase 85 Troponin I 0.18 Total Protein 6.4 Albumin 2.4 Lipase 700 Vitamin B12 Level 1360 Folate GREATER THAN 20.0 Blood Type B POSITIVE Antibody Screen NEGATIVE Crossmatch Leukocyte-Reduced Red Blood Cells Blood Bank Comment Result Diagram: 10/24/16 1300 10/24/16 1300 Imaging Last Impressions Chest X-Ray 10/24/16 0000 Signed Impressions: Service Date/Time: Monday, October 24, 2016 14:46 - CONCLUSION: 1. There is a new 2 cm mass in the right midlung. 2. Possible non-consolidative infiltrate right infrahilar region. Antione Rodríguez MD Assessment and Plan Assessment and Plan 66-year-old admitted for Severe anemia likely GI bleeding source. We'll get a CT of the abdomen and pelvis Transfuse 2 units RBC GI service has been consulted and is on the floor evaluating patient Start patient on Protonix 40 mg IV daily Check iron studies chronic pain- back pain consider CT of spine to rule out mets chest pain- NSTEMI- from demand ischemia lopressor 6.25 mg po q8 with hold parameter nitrol ointment 1/2 in to ant chest wall tid No aspirin due to GI bleed and severe anemia Chronic kidney insufficiency creatinine is near baseline Chronic pain history of malignancy in the past Right lung mass- on XR Continue Roxicodone 5 mg every 4 when necessary for pain Mechanical DVT prophylaxis. Code Status DNR Discussed Condition With DNR code status Physician Certification 2 Midnight Certification Type: Admission for Inpatient Services Order for Inpatient Services The services are ordered in accordance with Medicare regulations or non- Medicare payer requirements, as applicable. In the case of services not specified as inpatient-only, they are appropriately provided as inpatient services in accordance with the 2-midnight benchmark. Estimated LOS (days): 3 days is the estimated time the patient will need to remain in the hospital, assuming treatment plan goals are met and no additional complications. Post-Hospital Plan: Not yet determined Ricky Ng MD Oct 24, 2016 19:06 Ricky Ng MD Oct 24, 2016 19:06
--- NOTE | 2016-10-24 19:30 | RADRPT ---
EXAM DATE/TIME: 10/24/2016 19:03 [facility] COMPARISON: No previous studies available for comparison. INDICATIONS : Patient has right flank pain. ORAL CONTRAST: No oral contrast ingested. RADIATION DOSE: 5.06 CTDIvol (mGy) MEDICAL HISTORY : Carcinoma, colon. Renal cell carcinoma. Cardiovascular disease SURGICAL HISTORY : Colon resection. Nephrectomy, right. ENCOUNTER: Initial ACUITY: 1 day PAIN SCALE: 8/10 LOCATION: Right flank TECHNIQUE: Volumetric scanning of the abdomen and pelvis was performed. Using automated exposure control and ad justment of the mA and/or kV according to patient size, radiation dose was kept as low as reasonably achievable to obtain optimal diagnostic quality images. FINDINGS: There is a 5.3 cm mass in the right lower lobe in the infrahilar region. Multiple additional right thierry ng nodules are present characteristic of metastatic disease which have developed since the previous e xamination in November 2014. There are postop changes of right nephrectomy reportedly for renal cell carcinoma. There is a soft ti ssue mass in the right retroperitoneum measuring up to 10 cm in transverse diameter and 3.8 cm in thi ckness. There is also a separate 4.5 cm mass in the right flank. This is suspicious for local recurre nce of tumor. The left kidney has moderate to severe left-sided hydronephrosis with a left ureteral stent present l ooped proximally in the renal pelvis and distally in the bladder. No acute findings in the liver, spleen, left adrenal and pancreas. No calcified gallstones. No pelvic masses or adenopathy. Mild constipation. No acute bony abnormalities. CONCLUSION: 1. Soft tissue masses in the right flank and right peritoneum as measured above suspicious for local recurrence of tumor. 2. Worsening metastatic disease in the lower right chest with 5.3 cm mass in right lower lobe. 3. Moderate to severe left-sided hydronephrosis with left ureteral stent present as above. 4. Mild constipation. 5. 3.3 cm infrarenal abdominal aortic aneurysm. 6. Numerous nonobstructing calculi layering dependently lower pole left kidney ranging in size from 1 -3 mm. Francisco Javier Leigh MD on October 24, 2016 at 19:13 Board Certified Radiologist. This report was verified electronically.
[2016-10-24] MEDS ORDERED: PILL SPLITTER OTHER PRN (20:00)
[2016-10-24] MEDS: METOPROLOL TARTRATE 25 MG TAB PO SCH ×2 (20:29→21:33)
[2016-10-24] MEDS: NITROGLYCERIN 2% OINT 1 GM PACKET TOPICAL SCH (20:30)
[2016-10-24] MEDS: fentaNYL 100 MCG/HR PATCH T-DERMAL SCH (20:30)
[2016-10-24] MEDS: MEGESTROL ACETATE SUSP 400 MG/10 ML CUP PO SCH (20:30)
--- NOTE | 2016-10-24 23:41 | EKG ---
Date Performed: 10/24/2016 Time Performed: 12:55:47 PTAGE: 66 years EKG: SINUS TACHYCARDIA ST DEPRESSION, CONSIDER SUBENDOCARDIAL INJURY ABNORMAL ECG PREVIOUS TRACING : 02/03/2016 10.46 Compared to the previous tracing, previously normal Sinus r hythm without ST/T wave changes DOCTOR: Fabian Obando Interpretating Date/Time 10/24/2016 23:40:51
[2016-10-25] VITALS (9 sets, daily range): BP systolic 114–146; BP diastolic 58–69; PULSE 71–92; RESP 16–18; TEMP 98–99; O2SAT 97–100
[2016-10-25 01:03] LABS: HEMATOCRIT 25.2 % (39.0-51.0)
[2016-10-25 01:41] LABS: REVIEW FLAG FINAL
[2016-10-25] MEDS: METOPROLOL TARTRATE 25 MG TAB PO SCH ×3 (06:00→20:39)
[2016-10-25] MEDS: NITROGLYCERIN 2% OINT 1 GM PACKET TOPICAL SCH ×3 (06:01→20:40)
[2016-10-25 07:12] LABS: BASOPHIL % 0.2 % (0.0-2.0); EOSINOPHIL % 0.1 % (0.0-4.0); HEMATOCRIT 24.1 % (39.0-51.0); LYMPH % 16.4 % (9.0-44.0); LYMPHOCYTE # 2.4 TH/MM3 (1.0-4.8); MEAN CELL VOLUME 75.4 FL (80.0-100.0); MEAN CORPUSCULAR HEMOGLOBIN 24.8 PG (27.0-34.0); MEAN CORPUSCULAR HGB CONC 32.9 % (32.0-36.0); MONO % 7.6 % (0.0-8.0); NEUT % 75.7 % (16.0-70.0); PLATELET COUNT 532 TH/MM3 (150-450); RED BLOOD COUNT 3.19 MIL/MM3 (4.50-5.90); WHITE BLOOD COUNT 14.5 TH/MM3 (4.0-11.0)
[2016-10-25 07:18] LABS: HEMO FLAGS AUTO DIFF
[2016-10-25 08:38] LABS: PLATELET ESTIMATE SMEAR HIGH (NORMAL); PLATELET MORPHOLOGY NORMAL (NORMAL); SCAN/DIFF AUTO DIFF CONFIRMED
[2016-10-25] MEDS ORDERED: DEXAMETHASONE 4 MG TAB PO SCH (09:00)
[2016-10-25] MEDS ORDERED: amLODIPine BESYLATE 5 MG TAB PO SCH (09:00)
[2016-10-25] MEDS: PANTOPRAZOLE SODIUM 40 MG VIAL IV PUSH SCH (09:00)
[2016-10-25] MEDS: MEGESTROL ACETATE SUSP 400 MG/10 ML CUP PO SCH ×2 (10:15→20:39)
[2016-10-25 11:39] LABS: BICARBONATE 26.6 MEQ/L (21.0-32.0); POTASSIUM 3.5 MEQ/L (3.5-5.1)
--- NOTE | 2016-10-25 12:37 | HHI.PR ---
Subjective Remarks feeling much better and stronger no chest pain or shortness of breath no melena or hematochezia reported patient is not very consistent with history refusing some meds- into homeopathic med Objective Vitals Vital Signs Date Time Temp Pulse Resp B/P Pulse Ox O2 Delivery O2 Flow Rate FiO2 10/25/16 09:00 71 10/25/16 08:00 98.0 73 18 140/69 100 10/25/16 04:00 98.2 92 16 128/67 98 10/25/16 00:00 98.7 81 16 114/58 100 10/24/16 21:33 16 10/24/16 20:00 98.7 95 18 144/67 100 10/24/16 17:49 98.5 101 16 142/65 100 10/24/16 17:35 98.5 97 16 131/62 100 10/24/16 17:30 98.5 98 18 131/68 100 10/24/16 16:26 98.0 92 17 110/68 99 10/24/16 15:10 98.1 96 18 106/68 98 Room Air 10/24/16 14:55 98.2 102 18 118/60 98 Room Air 10/24/16 14:16 17 10/24/16 13:48 98 18 128/64 98 Room Air 10/24/16 13:42 17 10/24/16 13:05 18 98 Room Air 10/24/16 12:41 106 17 I/O 10/24/16 10/24/16 10/24/16 10/25/16 10/25/16 10/25/16 07:00 15:00 23:00 07:00 15:00 23:00 Intake Total 360 ml 240 ml Output Total 700 ml 800 ml Balance -340 ml -560 ml Intake Oral 360 ml 240 ml Output Urine Total 700 ml 800 ml # Voids 1 # Bowel Movements 0 Result Diagram: 10/25/16 0607 10/25/16 1048 Imaging Last Impressions Chest X-Ray 10/24/16 0000 Signed Impressions: Service Date/Time: Monday, October 24, 2016 14:46 - CONCLUSION: 1. There is a new 2 cm mass in the right midlung. 2. Possible non-consolidative infiltrate right infrahilar region. Antione Rodríguez MD Abdomen/Pelvis CT 10/24/16 0000 Signed Impressions: Service Date/Time: Monday, October 24, 2016 19:03 - CONCLUSION: 1. Soft tissue masses in the right flank and right peritoneum as measured above suspicious for local recurrence of tumor. 2. Worsening metastatic disease in the lower right chest with 5.3 cm mass in right lower lobe. 3. Moderate to severe left-sided hydronephrosis with left ureteral stent present as above. 4. Mild constipation. 5. 3.3 cm infrarenal abdominal aortic aneurysm. 6. Numerous nonobstructing calculi layering dependently lower pole left kidney ranging in size from 1-3 mm. Francisco Javier Leigh MD Objective Remarks awake and alert, oriented x 3 anicteric lungs clear regular rhythm abdomen soft, notnender extremities no edema neuro exam- non focal A/P Assessment and Plan 66-year-old admitted for Severe anemia likely GI bleeding source. -CT of abdomen/Lungs with mets S/P Transfuse 2 units RBC give another unit RBC GI ff- plan for panendoscopy Protonix 40 mg IV daily NSTEMI- from demand ischemia lopressor 6.25 mg po q8 with hold parameter nitrol ointment 1/2 in to ant chest wall tid No aspirin due to GI bleed and severe anemia Consult- Dr. Sesay- per patient was seen by her 2 weeks Right lung masses suggestive of mets- on XR History of malignancy- in the past ff by Dr. Delgado -Oncology consult chronic pain- back pain T of spine = no mets po pain meds prn now per patient - states has been off Dexamethasone for 3 weeks- DC dexamethasone Chronic kidney insufficiency creatinine is near baseline Mechanical DVT prophylaxis. Patient inconsistent with history, refusing some meds Ricky Ng MD Oct 25, 2016 12:37 Ricky Ng MD Oct 25, 2016 12:37
[2016-10-25] MEDS ORDERED: HYDROmorphone HCL PF 2 MG/ML VIAL IV PUSH ONE (20:00)
[2016-10-25] MEDS: IRON SUCROSE INJ 100 MG in SODIUM CHLORIDE 0.9% INJ 100 ML IV SCH (20:42)
--- NOTE | 2016-10-25 22:58 | MB ---
cc: AMENA NG,DEEJAY Bradford M.D. DATE OF CONSULTATION: 10/25/2016 REASON FOR CONSULTATION: DATE OF : 1950 [address] Ng CHIEF COMPLAINT Dr. Ng requested a consultation for Mr. Henry regarding metastatic colorectal cancer. HISTORY OF PRESENT ILLNESS Mr. Henry is a well known 66-year-old man with metastatic colorectal cancer. He was last seen in clinic July 23, 2015. He has a stage IV exophytic infiltrating adenocarcinoma which was low grade well-differentiated 1 out of 17 lymph nodes were positive. He had a primary colorectal cancer resected but his postoperative course was complicated by abscess. He did not receive adjuvant systemic chemotherapy. Ultimately he developed a recurrence. On May 03, 2015, CT scan of the chest shows multiple pulmonary nodule. There is a right upper quadrant nodule which is increased in size. CT-guided lung nodule biopsy showed moderately differentiated adenocarcinoma consistent with colorectal carcinoma metastatic lesion on May 11, 2015. After much consideration Mr. Henry declined palliative chemotherapy. He enrolled in [facility], and then transferred to [place] and transferred to a different Hospice setting. He reports doing well except for nephrostomy tube changes under the care of Dr. Karl Talbot. He started to feel bad around August. Review of his labs from July 2015 shows a normal hemoglobin of 14. Labs from June 2016 shows a hemoglobin of 12.5. He has no other labs from May. He had last CT scan of the abdomen through his Hospice at [facility] showing metastatic disease to the lung. The liver is clear. Soft tissue mass in the abdomen is still present. His CEA is mildly elevated and remains unchanged. Mr. Henry had progressive symptoms of fatigue. He ultimately came to [facility] on October 24, 2016. He was found to have a hemoglobin of 4.8. He was transfused two units of packed red cells and a third unit today. He is feeling better. His main complaint is related to his back pain. He denies any excessive aspirin or ibuprofen use. He has no overt bleeding. He denies any melena or bright red blood per rectum. He had some hemorrhoidal bleed for hard stools, however, that is not common. He had an excellent performance status. 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 He denies any fevers, chills, night sweats. Denies any headaches or vision changes. He was taking Decadron for back pain, however, he reports that he was doing this on and off. He had Megace which improved his appetite, however, it was no longer affordable by his last Hospice and Hospice was not going to pay for his Megace. He felt that that decreased his appetite even further. He came in also with mild renal insufficiency with a BUN of 32, creatinine of 1.73. Iron studies performed on the are consistent with iron deficiency with serum iron of 9, percent saturation 3, ferritin of 2.0. Hematology/Oncology is consulted for metastatic colorectal cancer and recommendations. PAST MEDICAL HISTORY: 1. Anxiety, 2. Arthritis, 3. Erectile dysfunction, 4. Chronic renal insufficiency 5. Nephrolithiasis 6. Previous colon cancer complicated by perinephric abscess 7. Coronary artery disease. 8. Metastatic colorectal cancer. PAST SURGICAL HISTORY: 1. Nephrostomy tube exchange 2014. 2. Right upper quadrant abscess. 3. Appendectomy. 4. CT guided lung biopsy. 5. Colon resection with right nephrectomy. 6. Hernia repair. ALLERGIES: Levaquin Sulfa. FAMILY HISTORY Mother of heart problems age 78. Father of circulatory problems age 64. SOCIAL HISTORY He is , lives with his . He has around a 12 pack-year smoking history. He is a former drinker. Denies any illicit drug use. PHYSICAL EXAMINATION VITAL SIGNS: Temperature 98.0, heart rate 80, respiratory rate 18, blood pressure 128/62. GENERAL: Mr. Henry is a well-developed cachectic-appearing man in no acute distress sitting in bed with the head of bed up. He is quite thin with atrophy of his lower extremity muscles. HEENT: Pupils are round, reactive to light and accommodation. Oropharynx is clear. NECK: Supple. LUNGS: Clear anteriorly. CARDIOVASCULAR: Exam reveals normal rate, rhythm. ABDOMEN: Benign and soft. No masses appreciated. EXTREMITIES: Lower extremities with no edema. SKIN: Dry skin. LABORATORY DATA: Significant for microcytic anemia with hemoglobin of 7.9, platelet count of 532. Renal insufficiency, BUN 24, creatinine 1.67. Iron studies consistent with iron deficiency. Vitamin B12 is elevated. ASSESSMENT AND PLAN: Mr. Henry is a 66 year-old man with metastatic colorectal cancer who declined palliative chemotherapy over a year ago. He has been under Hospice care in [place]. He is still interested in Hospice care, however, they have disagreements with the current Hospice. He was offered a consultation with [facility] to see if he may want to switch back. He was initially with [facility] before he moved. We discussed palliative therapy for metastatic colorectal cancer. We discussed it involves chemotherapy infuse in clinic in addition to wearing a pump for 48 hours. We discussed toxicity associated with the chemotherapy. We certainly can offer this to him. His performance status appears to be quite good. Ultimately Mr. Henry will decide if this is something consistent with his philosophy. In the meantime it is his anemia and possible GI loss of iron that has prompted the current admission. His hemoglobin was trending down slowly over the past year. His hemoglobin is at least 12 in June. His more acute symptoms occurred in August. GI has been consulted to evaluate the source of GI loss. In the meantime, I concur with the transfusion. I will hold off on additional transfusion and administer parenteral iron therapy to correct the iron deficiency and allow him to make new red blood cells. We hope to enhance hematopoesis. Furthermore the fatigue symptoms associated with the iron deficiency will hopefully resolve. Mr. Henry's questions were answered to his satisfaction. We will continue to follow. He is offered a follow up appointment at [facility] on an outpatient basis if he so desires. Hospice will be consulted. MD AMBIKA Moreno/CHINYERE /6:48 PM /10:23 PM
[2016-10-26] VITALS (10 sets, daily range): BP systolic 111–163; BP diastolic 57–71; PULSE 69–98; RESP 16–18; TEMP 97.4–98.8; O2SAT 98–100
[2016-10-26] MEDS: METOPROLOL TARTRATE 25 MG TAB PO SCH ×3 (05:14→19:48)
[2016-10-26] MEDS: NITROGLYCERIN 2% OINT 1 GM PACKET TOPICAL SCH ×3 (05:17→21:36)
[2016-10-26] MEDS: MEGESTROL ACETATE SUSP 400 MG/10 ML CUP PO SCH ×2 (07:53→19:51)
[2016-10-26] MEDS: PANTOPRAZOLE SODIUM 40 MG VIAL IV PUSH SCH (07:53)
[2016-10-26] MEDS: SODIUM CHLORIDE 0.9% FLUSH 10 ML FLUSH IVF PRN (07:59)
[2016-10-26] MEDS ORDERED: PROPOFOL 200 MG/20 ML AMP IV ONE (09:16)
--- NOTE | 2016-10-26 09:41 | GIPROC ---
[facility] [address] [facility]. [facility], [id number] EGD PROCEDURE REPORT EXAM DATE: 10/26/2016 PATIENT NAME: Rajendra Henry MR #: [id number] BIRTHDATE: 1950 ATTENDING: Candi Matthews MD ORDER #: [id number] [employer] TE[employer]ER: Carroll Choi and Stoney Goodson STATUS: inpatient INDICATIONS: The patient is a 66 yr old male here for an EGD due to anemia PROCEDURE PERFORMED: EGD w/ biopsy MEDICATIONS: None and Per Anesthesia. TOPICAL ANESTHETIC: none CONSENT: The patient understands the risks and benefits of the procedure and understands that these risks include, but are not limited to: sedation, allergic reaction, infection, perforation and/or bleeding. Alternative means of evaluation and treatment include, among others: physical exam, x-rays, and/or surgical intervention. The patient elects to proceed with this endoscopic procedure. medical equipment was checked for proper function. Hand hygiene and appropriate measures for infection prevention was taken. After the risks, benefits and alternatives of the procedure were thoroughly explained, Informed consent was verified, confirmed and timeout was successfully executed by the treatment team. The patient was anesthetized with topical anesthesia and the Pentax EG-[id number] endoscope was introduced through the mouth and advanced to the second portion of the duodenum. Retroflexed views revealed a hiatal hernia The gastroscope was then slowly withdrawn and removed. Esophagitis distal esophagus, white deposits -r/o em-biopsy gastritis antrum-biopsy ulcerated mass, hard indurated second portion of duodenum-biopsy, cannot advance scope further. ADVERSE EVENTS: There were no complications. IMPRESSIONS: 1. Esophagitis distal esophagus, white deposits -r/o em-biopsy gastritis antrum-biopsy ulcerated mass, hard indurated second portion of duodenum-biopsy, cannot advance scope further 2. Retroflexed views revealed a hiatal hernia RECOMMENDATIONS: 1. Await biopsy results. Biopsy results will not be ready for 7-10 days. If you don't hear from us in two weeks, call our office for biopsy results. 2. Ugi series with sbft with gastrografin ppi strat diflucan 100 mg po daily oncology fu transfuse prn soft diet PATIENT CONDITION: stable DISPOSITION: Inpatient REPEAT EXAM: EGD pending biopsy results Candi Matthews MD eSigned: Candi Matthews MD 10/26/2016 9:41 AM cc: PATIENT NAME: Rajendra Henry MR#: [id number]
[2016-10-26] MEDS ORDERED: MAGNESIUM CITRATE SOLN 300 ML BTL PO ONE ×2 (12:00→18:00)
--- NOTE | 2016-10-26 13:45 | PD.ONC.PN ---
Subjective Subjective Remarks Afebrile overnight. Patient just back from GI procedure this morning. He wants to wait until tomorrow to do SBFT. Objective Data Date Time Temp Pulse Resp B/P Pulse Ox O2 Delivery O2 Flow Rate FiO2 10/26/16 13:25 97 126/58 10/26/16 12:11 97.4 96 18 126/65 98 10/26/16 09:38 82 18 123/62 99 10/26/16 09:33 83 18 120/64 99 10/26/16 09:28 98.6 84 18 135/66 99 10/26/16 09:00 97.8 85 16 163/71 100 10/26/16 08:20 98.7 78 18 111/57 98 10/26/16 08:00 74 10/26/16 06:34 69 10/26/16 04:00 98.8 98 18 122/64 98 10/26/16 03:55 18 10/26/16 00:00 98.6 84 18 120/57 98 10/25/16 20:00 99.0 86 18 126/64 98 10/25/16 16:00 98.0 80 18 128/62 97 10/26/16 10/26/16 10/26/16 07:00 15:00 23:00 Intake Total 0 ml 100 ml Output Total 350 ml Balance -350 ml 100 ml Result Diagram: 10/25/16 0607 10/25/16 1048 Administered Medications Medications (Trade) Dose Ordered Sig/Elsi Route PRN Reason Start Time Stop Time Status Last Admin Dose Admin Sodium Chloride (NS Flush) 2 ml UNSCH PRN IVF FLUSH AFTER USING IV ACCESS 10/24/16 13:15 10/26/16 07:59 Pantoprazole Sodium (Protonix Inj) 40 mg Q24H IV PUSH 10/25/16 09:00 10/26/16 07:53 Megestrol Acetate (Megace Liq) 10 mg BID PO 10/24/16 21:00 10/26/16 07:53 Metoprolol Tartrate (Lopressor) 12.5 mg Q8HR PO 10/24/16 19:30 10/26/16 05:14 Oxycodone HCl (Roxicodone) 20 mg Q4HR PRN PO PAIN 10/24/16 20:00 10/26/16 12:16 Nitroglycerin 0.5 inch 0.5 inch Q8HR TOPICAL 10/24/16 22:00 10/26/16 05:17 Iron Sucrose/ Sodium Chloride (Venofer Inj/NS Inj) 105 ml @ 105 mls/hr Q24H IV 10/25/16 20:00 10/27/16 20:59 10/25/16 20:42 Objective Remarks GENERAL: Well-nourished, well-developed patient. SKIN: Warm and dry. HEAD: Normocephalic. EYES: No scleral icterus. No injection or drainage. NECK: Supple, trachea midline. No JVD or lymphadenopathy. LYMPHATIC: No adenopathy. CARDIOVASCULAR: Regular rate and rhythm without murmurs. RESPIRATORY: Breath sounds equal bilaterally. No accessory muscle use. GASTROINTESTINAL: Abdomen soft, non-tender, nondistended. EXTREMITIES: No cyanosis, or edema. MUSCULOSKELETAL: Adequate muscle tone. NEUROLOGICAL: No obvious focal deficit. Awake, alert, and oriented x3. PSYCHIATRIC: Appropriate mood and affect; insight and judgment normal. Assessment/Plan Problem List: (1) Colon cancer Status: Acute Plan: -- last seen in clinic July 23, 2015. --has a stage IV exophytic infiltrating adenocarcinoma which was low grade well- differentiated 1 out of 17 lymph nodes were positive. --had a primary colorectal cancer resected but his postoperative course was complicated by abscess. --did not receive adjuvant systemic chemotherapy. Ultimately he developed a recurrence. History: --May 03, 2015, CT chest showed multiple pulmonary nodules. +right upper quadrant nodule which has increased in size. --May 11, 2015. CT-guided lung nodule biopsy showed moderately differentiated adenocarcinoma consistent with colorectal carcinoma --declined palliative chemotherapy. --enrolled in [facility], and then transferred to [place] and transferred to a different Hospice setting. October 2016: presented to [facility] with hgb of 4.8, transfused pRBC with improvement of symptoms. c/o back pain. + mild renal insufficiency. --palliative therapy for metastatic colorectal cancer would involve chemotherapy infused in clinic in addition to wearing a pump for 48 hours. patient still deciding whether or not he wants chemotherapy (2) Severe anemia Status: Acute Plan: --GI following --SBFT pending --EGD, 10/26-->showed Esophagitis distal esophagus, white deposits -r/o em- biopsy gastritis antrum-biopsy ulcerated mass, hard indurated second portion of duodenum-biopsy, could not advance scope further --given IV iron Assessment 66y/o male with metastatic colorectal cancer. h/o Anxiety, Arthritis, Erectile dysfunction, Chronic renal insufficiency, Nephrolithiasis, Previous colon cancer complicated by perinephric abscess, Coronary artery disease. Metastatic colorectal cancer. Nephrostomy tube exchange 2014. Appendectomy. CT guided lung biopsy. Colon resection with right nephrectomy. Hernia repair. Plan 1. patient thinks he may want to pursue chemotherapy, but is unsure. will arrange follow up @ [facility] with Dr. Delgado. since patient has not been seen in greater than one year, will fax information to new patient referrals for appointment in 1 week 2. continue IV iron 3. monitor CBC Attending Statement The exam, history, and the medical decision-making described in the above note were completed with the assistance of the mid-level provider. I reviewed and agree with the findings presented. I attest that I had a [id number] encounter with the patient on the same day, and personally performed and documented my assessment and findings in the medical record. Discussed earlier with GI. Pt has decline chemotherapy in the past. Unsure what he will decide now with further progression of his disease, anemia and worse performance status. Out pt follow up arranged. Shannan Deng Oct 26, 2016 13:45 Carolina Delgado MD Oct 26, 2016 20:40
--- NOTE | 2016-10-26 14:25 | HHI.PR ---
Subjective Remarks tolerated EGD well now having a BM Objective Vitals Vital Signs Date Time Temp Pulse Resp B/P Pulse Ox O2 Delivery O2 Flow Rate FiO2 10/26/16 13:25 97 126/58 10/26/16 12:11 97.4 96 18 126/65 98 10/26/16 09:38 82 18 123/62 99 10/26/16 09:33 83 18 120/64 99 10/26/16 09:28 98.6 84 18 135/66 99 10/26/16 09:00 97.8 85 16 163/71 100 10/26/16 08:20 98.7 78 18 111/57 98 10/26/16 08:00 74 10/26/16 06:34 69 10/26/16 04:00 98.8 98 18 122/64 98 10/26/16 03:55 18 10/26/16 00:00 98.6 84 18 120/57 98 10/25/16 20:00 99.0 86 18 126/64 98 10/25/16 16:00 98.0 80 18 128/62 97 I/O 10/25/16 10/25/16 10/25/16 10/26/16 10/26/16 10/26/16 07:00 15:00 23:00 07:00 15:00 23:00 Intake Total 240 ml 360 ml 240 ml 0 ml 100 ml Output Total 800 ml 500 ml 275 ml 350 ml Balance -560 ml -140 ml -35 ml -350 ml 100 ml Intake Oral 240 ml 360 ml 240 ml 0 ml IV Total 100 ml Output Urine Total 800 ml 500 ml 275 ml 350 ml # Bowel Movements 1 0 0 Result Diagram: 10/25/16 0607 10/25/16 1048 Imaging Last Impressions Chest X-Ray 10/24/16 0000 Signed Impressions: Service Date/Time: Monday, October 24, 2016 14:46 - CONCLUSION: 1. There is a new 2 cm mass in the right midlung. 2. Possible non-consolidative infiltrate right infrahilar region. Antione Rodríguez MD Abdomen/Pelvis CT 10/24/16 0000 Signed Impressions: Service Date/Time: Monday, October 24, 2016 19:03 - CONCLUSION: 1. Soft tissue masses in the right flank and right peritoneum as measured above suspicious for local recurrence of tumor. 2. Worsening metastatic disease in the lower right chest with 5.3 cm mass in right lower lobe. 3. Moderate to severe left-sided hydronephrosis with left ureteral stent present as above. 4. Mild constipation. 5. 3.3 cm infrarenal abdominal aortic aneurysm. 6. Numerous nonobstructing calculi layering dependently lower pole left kidney ranging in size from 1-3 mm. Francisco Javier Leigh MD Objective Remarks awake and alert, oriented x 3 anicteric lungs clear regular rhythm abdomen soft, nontender extremities no edema neuro exam- non focal Procedures 10/26- EGD A/P Assessment and Plan 66-year-old admitted for Severe anemia likely GI bleeding source. -CT of abdomen/Lungs with mets S/P Transfuse 2 units RBC H and H stable S/PEGD- esophagitis, whitish deposis suspicious for candidasis Protonix 40 mg IV daily started on diflucan NSTEMI- from demand ischemia lopressor 6.25 mg po q8 with hold parameter nitrol ointment 1/2 in to ant chest wall tid No aspirin due to GI bleed and severe anemia Consult- Dr. Sesay- per patient was seen by her 2 weeks Right lung masses suggestive of mets- on XR History of malignancy- in the past ff by Dr. Delgado -Oncology ff chronic pain- back pain T of spine = no mets po pain meds prn now per patient - states has been off Dexamethasone for 3 weeks- DC dexamethasone Chronic kidney insufficiency creatinine is near baseline Mechanical DVT prophylaxis. CM - DC planing- home health care needs Ricky Ng MD Oct 26, 2016 14:25
[2016-10-26] MEDS: BISACODYL EC 5 MG TABEC PO SCH ×2 (17:22→19:48)
--- NOTE | 2016-10-26 19:21 | MB ---
cc: GOMEZ DELEON M.D., [place] DATE OF CONSULTATION 10/26/16 HISTORY OF PRESENT ILLNESS A 66-year-old white male with several cardiac risk factors who was admitted yesterday with severe weakness to the point that he has been unable to stand on his feet. The patient came to the emergency room where he was found to have severe anemia with a hemoglobin of four. He has been transfused since then and his hemoglobin is back to eight. He does have a history of colorectal metastatic cancer and he has refused chemotherapy. He developed an abscess after surgical resection and now he has developed a recurrence. I am being consulted secondary to ischemic electrocardiographic EKG changes as well as positive troponins. The patient does mention that he had severe chest discomfort that radiated to both arms described as heaviness. Symptoms lasted for two hours and he has had no recurrence of the symptoms. The patient is status post upper endoscopy and he was found to have a mass in the duodenum and he was also found to have changes consistent with candidiasis. Currently, he is in no acute distress. PAST MEDICAL HISTORY 1. Peripheral arterial disease, 2. Anxiety, 3. Arthritis, 4. Erectile dysfunction 5. Chronic renal insufficiency, 6. Nephrolithiasis 7. Left colon cancer complicated by perinephric abscess PAST SURGICAL HISTORY 1. Nephrostomy tube 2. Right upper quadrant abscess 3. Appendectomy, 4. Colon resection with right nephrectomy 5. Hernia repair. ALLERGIES LEVAQUIN SULFA FAMILY HISTORY Mother of a heart problem at the age of 78. Father of circulatory problems at age 64. SOCIAL HISTORY He is and lives with his . He continues to smoke. He is a former drinker. PHYSICAL EXAMINATION VITAL SIGNS: Blood pressure 126/58 with a mean of 80 mmHg, heart rate 90 beats per minute. He is a febrile. HEAD AND NECK: Unremarkable without JVD or carotid bruits. LUNGS: Clear to auscultation. HEART: Normal S1-S2. ABDOMEN: Positive bowel sounds. No megaly. EXTREMITIES: Without edema. LABORATORY DATA Sodium 136, potassium 3.5, BUN 24, creatinine 1.67, glucose 191. Troponin is 0.18 and 0.39. PT and INR within normal limits. Hematology with white count of 14.5, hemoglobin 7.9 with an initial hemoglobin of 4.8, platelet count of 532. CARDIOLOGY STUDIES EKG shows sinus tachycardia with lateral ischemic changes. IMPRESSION A 66-year-old white male with several cardiac risk factors now with type 2 infarct from supply demand mismatch. The patient has had no recurrence of the chest pain and is very comfortable at this time. I agree with medical management with beta blockers and, of course, he is not a candidate for aspirin due to recent gastrointestinal bleeding. He has opted for palliative care for his stage IV colorectal cancer, so I do not anticipate any cardiac invasive procedures. We will change metoprolol to 25 mg b.i.d. and continue to follow as needed. MD KURTIS Iyer/ /6:33 PM /7:09 PM MTDD
[2016-10-26] MEDS: IRON SUCROSE INJ 100 MG in SODIUM CHLORIDE 0.9% INJ 100 ML IV SCH (19:52)
[2016-10-26] MEDS ORDERED: REMOVE OLD DURAGESIC (FENTANYL) PATCH T-DERMAL SCH (21:00)
[2016-10-27] VITALS (8 sets, daily range): BP systolic 100–134; BP diastolic 53–61; PULSE 83–96; RESP 12–18; TEMP 97.1–99; O2SAT 98–100
[2016-10-27] MEDS: NITROGLYCERIN 2% OINT 1 GM PACKET TOPICAL SCH ×3 (05:44→20:47)
--- NOTE | 2016-10-27 09:42 | HHI.PR ---
Subjective Remarks no headaches, chest pain or shortness of breath, abdominal pain no melena or heamtochezia- formed stools Objective Vitals Vital Signs Date Time Temp Pulse Resp B/P Pulse Ox O2 Delivery O2 Flow Rate FiO2 10/27/16 05:00 18 10/27/16 04:00 98.9 83 16 115/55 98 10/27/16 01:46 88 10/27/16 00:00 99.0 96 18 113/53 98 10/26/16 20:00 97.4 92 18 117/59 99 10/26/16 16:04 98.6 95 18 125/69 100 10/26/16 13:25 97 126/58 10/26/16 12:11 97.4 96 18 126/65 98 I/O 10/26/16 10/26/16 10/26/16 10/27/16 10/27/16 10/27/16 07:00 15:00 23:00 07:00 15:00 23:00 Intake Total 0 ml 820 ml 240 ml 0 ml Output Total 350 ml 600 ml Balance -350 ml 220 ml 240 ml 0 ml Intake Oral 0 ml 720 ml 240 ml 0 ml IV Total 100 ml Output Urine Total 350 ml 600 ml # Voids 1 3 # Bowel Movements 0 0 1 2 Result Diagram: 10/25/16 0607 10/25/16 1048 Imaging Last Impressions Chest X-Ray 10/24/16 0000 Signed Impressions: Service Date/Time: Monday, October 24, 2016 14:46 - CONCLUSION: 1. There is a new 2 cm mass in the right midlung. 2. Possible non-consolidative infiltrate right infrahilar region. Antione Rodríguez MD Abdomen/Pelvis CT 10/24/16 0000 Signed Impressions: Service Date/Time: Monday, October 24, 2016 19:03 - CONCLUSION: 1. Soft tissue masses in the right flank and right peritoneum as measured above suspicious for local recurrence of tumor. 2. Worsening metastatic disease in the lower right chest with 5.3 cm mass in right lower lobe. 3. Moderate to severe left-sided hydronephrosis with left ureteral stent present as above. 4. Mild constipation. 5. 3.3 cm infrarenal abdominal aortic aneurysm. 6. Numerous nonobstructing calculi layering dependently lower pole left kidney ranging in size from 1-3 mm. Francisco Javier Leigh MD Objective Remarks awake and alert, oriented x 3 anicteric lungs clear regular rhythm abdomen soft, nontender extremities no edema neuro exam- non focal Procedures 10/26- EGD A/P Assessment and Plan 66-year-old admitted for Severe anemia likely GI bleeding source. S/P EGD- gastritis Iron deficiency secondary to GI loss CT of abdomen/Lungs with mets/duodenal leak S/P Transfuse 2 units RBC H and H stable. recheck this am S/PEGD- esophagitis, whitish deposit suspicious for candidiasis Protonix 40 mg IV daily- change to po on DC - for SBFT today - started on diflucan - IV Iron daily x 3 days till 10/27 - GI/Hematology ff NSTEMI- from demand ischemia appreciate Dr. Sesay seeing patient- Lopressor up to 25 mg po bid nitrol ointment 1/2 in to ant chest wall tid No aspirin due to GI bleed and severe anemia Right lung masses suggestive of mets- History of malignancy- in the past ff by Dr. Delgado -Oncology ff- OP ff up chronic pain- back pain T of spine = no mets po pain meds prn now per patient - states has been off Dexamethasone for 3 weeks- DC dexamethasone Acute on Chronic kidney insufficiency creatinine is near baseline Mechanical DVT prophylaxis. CM - DC planing- home health care needs- will resume care on discharge- ff by Hospice ADD. SB series- shows duodenal leak very anxious- Xanax 0.125 mg po bid CRS consulted Ricky Ng MD Oct 27, 2016 09:42
--- NOTE | 2016-10-27 09:56 | HHI.FF ---
Face to Face Verification Diagnosis: (1) Chest pain (2) Upper GI bleed (3) Colon cancer (4) Severe anemia Home Health Nursing Order: Medical education Signs/symptoms of disease process Nursing assessment with vital signs Operator Lights Order: To Evaluate: Support services I have seen patient Rajendra Henry on 10/27/16. My clinical findings support the need for the requested home health care services because: Ltd mobility - disease progression Need for psychosocial assistance I certify that my clinical findings support that this patient is homebound because: Need for psychosocial assistance Ricky Ng MD Oct 27, 2016 09:56
[2016-10-27] MEDS: FLUCONAZOLE 100 MG TAB PO SCH (10:00)
[2016-10-27] MEDS: METOPROLOL TARTRATE 25 MG TAB PO SCH ×2 (10:00→20:47)
[2016-10-27] MEDS: PANTOPRAZOLE SODIUM 40 MG VIAL IV PUSH SCH (10:01)
[2016-10-27] MEDS: MEGESTROL ACETATE SUSP 400 MG/10 ML CUP PO SCH ×2 (10:06→20:47)
[2016-10-27 10:51] LABS: AUTOMATED NEUTROPHIL # 11.5 TH/MM3 (1.8-7.7); BASOPHIL % 0.2 % (0.0-2.0); EOSINOPHIL # 0.1 TH/MM3 (0-0.4); EOSINOPHIL % 0.4 % (0.0-4.0); HEMATOCRIT 27.2 % (39.0-51.0); LYMPHOCYTE # 1.6 TH/MM3 (1.0-4.8); MEAN CELL VOLUME 77.4 FL (80.0-100.0); MEAN CORPUSCULAR HEMOGLOBIN 24.4 PG (27.0-34.0); MEAN CORPUSCULAR HGB CONC 31.6 % (32.0-36.0); MONO % 7.7 % (0.0-8.0); NEUT % 80.7 % (16.0-70.0); PLATELET COUNT 460 TH/MM3 (150-450); RED BLOOD COUNT 3.51 MIL/MM3 (4.50-5.90); RED CELL DISTRIBUTION WIDTH 19.2 % (11.6-17.2); WHITE BLOOD COUNT 14.3 TH/MM3 (4.0-11.0)
[2016-10-27 10:52] LABS: HEMO FLAGS AUTO DIFF
[2016-10-27 11:05] LABS: BICARBONATE 27.8 MEQ/L (21.0-32.0); POTASSIUM 3.8 MEQ/L (3.5-5.1)
--- NOTE | 2016-10-27 11:12 | PD.ONC.PN ---
Subjective Subjective Remarks Afebrile overnight. Frustrated that he is waiting for his SBFT today. Feels he has not had his questions about the procedure adequately answered. Unsure if wants chemotherapy in clinic. Objective Data Date Time Temp Pulse Resp B/P Pulse Ox O2 Delivery O2 Flow Rate FiO2 10/27/16 08:00 98.1 91 12 121/58 99 10/27/16 05:00 18 10/27/16 04:00 98.9 83 16 115/55 98 10/27/16 01:46 88 10/27/16 00:00 99.0 96 18 113/53 98 10/26/16 20:00 97.4 92 18 117/59 99 10/26/16 16:04 98.6 95 18 125/69 100 10/26/16 13:25 97 126/58 10/26/16 12:11 97.4 96 18 126/65 98 10/27/16 10/27/16 10/27/16 07:00 15:00 23:00 Intake Total 0 ml Balance 0 ml Result Diagram: 10/27/16 1016 10/25/16 1048 Laboratory Results Laboratory Tests Test 10/27/16 10:16 White Blood Count 14.3 TH/MM3 Red Blood Count 3.51 MIL/MM3 Hemoglobin 8.6 GM/DL Hematocrit 27.2 % Mean Corpuscular Volume 77.4 FL Mean Corpuscular Hemoglobin 24.4 PG Mean Corpuscular Hemoglobin 31.6 % Concent Red Cell Distribution Width 19.2 % Platelet Count 460 TH/MM3 Mean Platelet Volume 7.0 FL Neutrophils (%) (Auto) 80.7 % Lymphocytes (%) (Auto) 11.0 % Monocytes (%) (Auto) 7.7 % Eosinophils (%) (Auto) 0.4 % Basophils (%) (Auto) 0.2 % Neutrophils # (Auto) 11.5 TH/MM3 Lymphocytes # (Auto) 1.6 TH/MM3 Monocytes # (Auto) 1.1 TH/MM3 Eosinophils # (Auto) 0.1 TH/MM3 Basophils # (Auto) 0.0 TH/MM3 CBC Comment AUTO DIFF Administered Medications Medications (Trade) Dose Ordered Sig/Elsi Route PRN Reason Start Time Stop Time Status Last Admin Dose Admin Sodium Chloride (NS Flush) 2 ml UNSCH PRN IVF FLUSH AFTER USING IV ACCESS 10/24/16 13:15 10/26/16 07:59 Pantoprazole Sodium (Protonix Inj) 40 mg Q24H IV PUSH 10/25/16 09:00 10/27/16 10:01 Megestrol Acetate (Megace Liq) 10 mg BID PO 10/24/16 21:00 10/27/16 10:06 Nitroglycerin 0.5 inch 0.5 inch Q8HR TOPICAL 10/24/16 22:00 10/27/16 05:44 Iron Sucrose/ Sodium Chloride (Venofer Inj/NS Inj) 105 ml @ 105 mls/hr Q24H IV 10/25/16 20:00 10/27/16 20:59 10/26/16 19:52 Fluconazole (Diflucan) 100 mg DAILY PO 10/27/16 09:00 10/27/16 10:00 Oxycodone HCl (Roxicodone) 20 mg Q3H PRN PO PAIN 1-10 10/26/16 17:00 10/27/16 10:10 Metoprolol Tartrate (Lopressor) 25 mg BID PO 10/26/16 21:00 10/27/16 10:00 Objective Remarks GENERAL: Middle aged male, sitting up in bed in [facility]. SKIN: Warm and dry. HEAD: Normocephalic. EYES: no injection or drainage. NECK: Supple, trachea midline. CARDIOVASCULAR: Regular rate and rhythm RESPIRATORY: Breath sounds equal bilaterally. No accessory muscle use. GASTROINTESTINAL: Abdomen soft, non-tender, nondistended. EXTREMITIES: No cyanosis NEUROLOGICAL: awake and alert, normal speech. moving extremities. Assessment/Plan Problem List: (1) Colon cancer Status: Acute Plan: -- last seen in clinic July 23, 2015. --has a stage IV exophytic infiltrating adenocarcinoma which was low grade well- differentiated 1 out of 17 lymph nodes were positive. --had a primary colorectal cancer resected but his postoperative course was complicated by abscess. --did not receive adjuvant systemic chemotherapy. Ultimately he developed a recurrence. History: --May 03, 2015, CT chest showed multiple pulmonary nodules. +right upper quadrant nodule which has increased in size. --May 11, 2015. CT-guided lung nodule biopsy showed moderately differentiated adenocarcinoma consistent with colorectal carcinoma --declined palliative chemotherapy. --enrolled in [facility], and then transferred to [place] and transferred to a different Hospice setting. October 2016: presented to [facility] with hgb of 4.8, transfused pRBC with improvement of symptoms. c/o back pain. + mild renal insufficiency. --palliative therapy for metastatic colorectal cancer would involve chemotherapy infused in clinic in addition to wearing a pump for 48 hours. patient still deciding whether or not he wants chemotherapy (2) Severe anemia Status: Acute Plan: --GI following --SBFT pending --EGD, 10/26-->showed Esophagitis distal esophagus, white deposits -r/o em- biopsy gastritis antrum-biopsy ulcerated mass, hard indurated second portion of duodenum-biopsy, could not advance scope further --given IV iron Assessment 66y/o male with metastatic colorectal cancer. h/o Anxiety, Arthritis, Erectile dysfunction, Chronic renal insufficiency, Nephrolithiasis, Previous colon cancer complicated by perinephric abscess, Coronary artery disease. Metastatic colorectal cancer. Nephrostomy tube exchange 2014. Appendectomy. CT guided lung biopsy. Colon resection with right nephrectomy. Hernia repair. Plan 1. continue IV iron 2. monitor CBC 3. follow up in clinic once discharged. hematology/oncology will sign off. please call or reconsult if needed. Attending Statement The exam, history, and the medical decision-making described in the above note were completed with the assistance of the mid-level provider. I reviewed and agree with the findings presented. I attest that I had a [id number] encounter with the patient on the same day, and personally performed and documented my assessment and findings in the medical record. Pt seen and examined. Disappointed with GI report. State he is still not giving up, but not necessarily agree with chemotherapy. Offered follow up appt. Hgb improving with iron tx- he is thankful for his vitals that are normal. Emotional support provided. Will sign off. Shannan Deng Oct 27, 2016 11:12 Carolina Delgado MD Oct 27, 2016 19:25
[2016-10-27 11:33] LABS: SCAN/DIFF AUTO DIFF CONFIRMED
[2016-10-27] MEDS ORDERED: METO25TA3 PO (13:37)
[2016-10-27] MEDS ORDERED: PROT40TA PO (13:37)
[2016-10-27] MEDS ORDERED: NITR2OIN TOPICAL (13:37)
[2016-10-27] MEDS ORDERED: FERR325T PO (13:41)
[2016-10-27] MEDS ORDERED: FLUC100T2 PO (13:42)
--- NOTE | 2016-10-27 14:43 | RADRPT ---
EXAM DATE/TIME: 10/27/2016 10:34 [facility] COMPARISON: CT ABDOMEN & PELVIS W/O CONTRAST, October 24, 2016, 19:03. INDICATIONS : Obstruction, abdomen pain. FLUORO TIME: 0.8 minutes IMAGE COUNT: 19 CONTRAST: Liquid E-Z Paque Barium Sulfate (60% w/v, 41% w/w) IMAGING TIME(S): 30 min, 45 min, 1 hr, 2 hrs, 2.5 hrs MEDICAL HISTORY : Carcinoma, colon. SURGICAL HISTORY : Colon resection. Nephrectomy, right. ENCOUNTER: Subsequent ACUITY: 4 - 6 days PAIN SCORE: 8/10 LOCATION: Abdomen FINDINGS: Single contrast examination was performed and the esophagus and stomach appear intact. Contrast extra vasates from the duodenum at the junction of the second and third portion of the duodenum into the so ft tissue density identified on the patient's CT examination posteriorly on the right side characteri stic of leak. The rest of the small bowel appears intact and there is no evidence for small bowel obs truction. CONCLUSION: There is a leak at the junction of the second and third portion of duodenum into this soft tissue density seen on the patient's prior CT examination on the right side in the upper quadra nt posteriorly which also has gas bubbles within it. Findings were discussed with Dr. Matthews on 017 at the time of this dictation. Sreedhar Richardson MD on October 27, 2016 at 14:36 Board Certified Radiologist. This report was verified electronically.
--- NOTE | 2016-10-27 15:32 | HHI.GIFU ---
Subjective Remarks Resting in chair. No n/v. States his only pain is his chronic flank pain on right side and that it is controlled with his pain meds. (Nancy Chawla) Objective Vitals I&O Vital Signs Date Time Temp Pulse Resp B/P Pulse Ox O2 Delivery O2 Flow Rate FiO2 10/27/16 08:00 98.1 91 12 121/58 99 10/27/16 05:00 18 10/27/16 04:00 98.9 83 16 115/55 98 10/27/16 01:46 88 10/27/16 00:00 99.0 96 18 113/53 98 10/26/16 20:00 97.4 92 18 117/59 99 10/26/16 16:04 98.6 95 18 125/69 100 I/O 10/26/16 10/26/16 10/26/16 10/27/16 10/27/16 10/27/16 07:00 15:00 23:00 07:00 15:00 23:00 Intake Total 0 ml 820 ml 240 ml 0 ml Output Total 350 ml 600 ml Balance -350 ml 220 ml 240 ml 0 ml Intake Oral 0 ml 720 ml 240 ml 0 ml IV Total 100 ml Output Urine Total 350 ml 600 ml # Voids 1 3 # Bowel Movements 0 0 1 2 Laboratory Laboratory Tests Test 10/27/16 10:16 White Blood Count 14.3 Red Blood Count 3.51 Hemoglobin 8.6 Hematocrit 27.2 Mean Corpuscular Volume 77.4 Mean Corpuscular Hemoglobin 24.4 Mean Corpuscular Hemoglobin 31.6 Concent Red Cell Distribution Width 19.2 Platelet Count 460 Mean Platelet Volume 7.0 Neutrophils (%) (Auto) 80.7 Lymphocytes (%) (Auto) 11.0 Monocytes (%) (Auto) 7.7 Eosinophils (%) (Auto) 0.4 Basophils (%) (Auto) 0.2 Neutrophils # (Auto) 11.5 Lymphocytes # (Auto) 1.6 Monocytes # (Auto) 1.1 Eosinophils # (Auto) 0.1 Basophils # (Auto) 0.0 CBC Comment AUTO DIFF Differential Comment AUTO DIFF CONFIRMED Sodium Level 135 Potassium Level 3.8 Chloride Level 100 Carbon Dioxide Level 27.8 Anion Gap 7 Blood Urea Nitrogen 17 Creatinine 1.30 Estimat Glomerular Filtration 55 Rate Random Glucose 115 Calcium Level 8.0 Imaging Last Impressions Upper GI and Small Bowel X-Ray 10/27/16 0000 Signed Impressions: Service Date/Time: Thursday, October 27, 2016 10:34 - CONCLUSION: There is a leak at the junction of the second and third portion of duodenum into this soft tissue density seen on the patient's prior CT examination on the right side in the upper quadrant posteriorly which also has gas bubbles within it. Findings were discussed with Dr. Matthews on 10/18/2016 at the time of this dictation. Sreedhar Richardson MD Chest X-Ray 10/24/16 0000 Signed Impressions: Service Date/Time: Monday, October 24, 2016 14:46 - CONCLUSION: 1. There is a new 2 cm mass in the right midlung. 2. Possible non-consolidative infiltrate right infrahilar region. Antione Rodríguez MD Abdomen/Pelvis CT 10/24/16 0000 Signed Impressions: Service Date/Time: Monday, October 24, 2016 19:03 - CONCLUSION: 1. Soft tissue masses in the right flank and right peritoneum as measured above suspicious for local recurrence of tumor. 2. Worsening metastatic disease in the lower right chest with 5.3 cm mass in right lower lobe. 3. Moderate to severe left-sided hydronephrosis with left ureteral stent present as above. 4. Mild constipation. 5. 3.3 cm infrarenal abdominal aortic aneurysm. 6. Numerous nonobstructing calculi layering dependently lower pole left kidney ranging in size from 1-3 mm. Francisco Javier Leigh MD Physical Exam HEENT: Normocephalic; atraumatic; no jaundice. CHEST: CTA. CARDIAC: RRR. ABDOMEN: Soft, nondistended, nontender; no hepatosplenomegaly; bowel sounds are present in all four quadrants. EXTREMITIES: No clubbing, cyanosis, or edema. SKIN: Normal; no rash; no jaundice. [employer]: No focal deficits; alert and oriented times three. (Nancy Chawla) Assessment and Plan Plan ASSESSMENT: - Severe anemia. Came to ER for worsening weakness, dizziness, indigestion. Found to have severe anemia with HH of 4.8/15.7 on admission. Guaiac was positive in the ER. He denies having any melena, hematochezia, nausea, vomiting. He does report that he has been having severe indigestion- not related to food intake/exertion, relieved with dilaudid and GI cocktail in the ER. Of note he has been taking dexamethasone up until recently when he started having the severe indigestion. He revoked his hospice today to come to the ER and find out why he was having his symptoms. S/P EGD (10/27/16)-----> 1. Esophagitis distal esophagus, white deposits -r/o em-biopsy gastritis antrum-biopsy ulcerated mass, hard indurated second portion of duodenum-biopsy, cannot advance scope further 2. Retroflexed views revealed a hiatal hernia. S/P Upper GI and Small Bowel X-Ray (10/27/16)----> There is a leak at the junction of the second and third portion of duodenum into this soft tissue density seen on the patient's prior CT examination on the right side in the upper quadrant posteriorly which also has gas bubbles within it. Findings were discussed with Dr. Matthews on 10/18/2016 at the time of this dictation. Will keep NPO, place NGT to [facility], and consult Dr. Siegel (known to patient). Long discussion with patient and . - Severe indigestion, not related to food or exertion. EGD as above. PPI - Stage IV Colon cancer. S/P resection in 2014. His postoperative course was complicated by development of an abscess and therefore he did not receive adjuvant therapy. He was then found to have recurrent disease and had elected not to receive chemotherapy and was enrolled on hospice care. He revoked this today in order to come to the ER and find out what was causing for his symptoms - Recent left hydronephrosis, he sees Dr. Talbot, He had cystoscopy, left retrograde, left double-J stent insertion in Aug. PLAN: - NPO - Insert NGT - NGT to [facility] - Consult Dr. Siegel (pt known to him) re: duodenal leak - Monitor HH - Further recommendations to follow based on results of above - Pt seen and examined by Dr. Matthews and myself and this note is written on her behalf (Nancy Chawla) Physician Comments seen, examined agree with above await dr Siegel's input refusing, ngt, no signs of acute abdomen, most likely chronic leak, we will allow him to have food (Candi Matthews MD) Nancy Chawla Oct 27, 2016 15:32 Candi Matthews MD Oct 27, 2016 17:00
[2016-10-27 19:35] LABS: BASOPHIL # 0.1 TH/MM3 (0-0.2); BASOPHIL % 0.5 % (0.0-2.0); EOSINOPHIL % 0.2 % (0.0-4.0); HEMATOCRIT 27.2 % (39.0-51.0); LYMPH % 9.2 % (9.0-44.0); LYMPHOCYTE # 1.8 TH/MM3 (1.0-4.8); MEAN CELL VOLUME 78.3 FL (80.0-100.0); MEAN CORPUSCULAR HEMOGLOBIN 24.8 PG (27.0-34.0); MEAN CORPUSCULAR HGB CONC 31.7 % (32.0-36.0); MONO % 7.2 % (0.0-8.0); NEUT % 82.9 % (16.0-70.0); PLATELET COUNT 436 TH/MM3 (150-450); RED BLOOD COUNT 3.47 MIL/MM3 (4.50-5.90); RED CELL DISTRIBUTION WIDTH 19.6 % (11.6-17.2); WHITE BLOOD COUNT 19.3 TH/MM3 (4.0-11.0)
[2016-10-27 19:45] LABS: HEMO FLAGS AUTO DIFF
[2016-10-27] MEDS ORDERED: ALPRAZolam 0.25 MG TAB PO PRN (19:45)
[2016-10-27] MEDS: fentaNYL 100 MCG/HR PATCH T-DERMAL SCH (20:47)
[2016-10-27] MEDS: IRON SUCROSE INJ 100 MG in SODIUM CHLORIDE 0.9% INJ 100 ML IV SCH (20:48)
[2016-10-27 21:15] LABS: BANDS 4 % (0-6); METAMYELOCYTES 1 % (0-1); MYELOCYTES 1 % (0-0); NEUTROPHIL # MANUAL DIFF 15.4 TH/MM3 (1.8-7.7); POLYS (SEG NEUTROPHILS) 74 % (16-70); WBC DIFF SAMPLE 100
[2016-10-27 21:19] LABS: ACANTHOCYTES OCC (NORMAL); PLATELET ESTIMATE SMEAR HIGH (NORMAL); PLATELET MORPHOLOGY NORMAL (NORMAL); SCAN/DIFF FINAL DIFF MANUAL
--- NOTE | 2016-10-27 22:15 | HHI.PR ---
Subjective Remarks C/R Surg Pt known from previous care/surgeries Known metastatic disease, progressive - pt has opted to decline chemotherapy c/o now low HGB, GI bleed, pain rt flank abscess Objective - Vital Signs Date Time Temp Pulse Resp B/P Pulse Ox O2 Delivery O2 Flow Rate FiO2 10/27/16 16:00 98.1 87 16 134/61 100 10/24/16 15:10 Room Air Result Diagram: 10/27/16 1904 10/27/16 1016 Objective Remarks PE alert Abd - soft, non-tender, cellilitis rt flank with draining sinus A/P Assessment and Plan Imp: metastatic colon cancer, progressive without chemotherapy now with duodenal -cutaneous fistula , bagged for control reviewed with pt/, they both appear to accept Hospice care - will see if in care center would be available plan Russell Rascon MD Oct 27, 2016 22:15
[2016-10-28] VITALS (7 sets, daily range): BP systolic 109–130; BP diastolic 56–67; PULSE 80–93; RESP 16–19; TEMP 96.9–98.7; O2SAT 95–100
[2016-10-28] MEDS: NITROGLYCERIN 2% OINT 1 GM PACKET TOPICAL SCH (05:24)
--- NOTE | 2016-10-28 08:14 | HHI.PR ---
Subjective Remarks No change Objective Vital Signs Date Time Temp Pulse Resp B/P Pulse Ox O2 Delivery O2 Flow Rate FiO2 10/28/16 06:30 16 10/28/16 06:03 88 10/28/16 04:00 98.2 89 18 115/58 99 10/28/16 00:00 98.7 91 18 124/59 95 10/27/16 20:00 98.3 91 16 100/56 100 10/27/16 16:00 98.1 87 16 134/61 100 10/27/16 14:00 97.1 93 16 127/58 100 I/O 10/27/16 10/27/16 10/27/16 10/28/16 10/28/16 10/28/16 07:00 15:00 23:00 07:00 15:00 23:00 Intake Total 0 ml 480 ml 480 ml Output Total 300 ml 75 ml Balance 0 ml 480 ml 180 ml -75 ml Intake Oral 0 ml 480 ml 480 ml Output Urine Total 300 ml Drainage Total 75 ml # Voids 3 1 1 # Bowel Movements 2 1 1 Result Diagram: 10/27/16 1904 10/27/16 1016 Objective Remarks Abd: benign Assessment and Plan Assessment and Plan Stable. Tolerating Regular diet D/C. ? Hospice. Tr Sprague MD Oct 28, 2016 08:14
[2016-10-28] MEDS: FLUCONAZOLE 100 MG TAB PO SCH (08:16)
[2016-10-28] MEDS: METOPROLOL TARTRATE 25 MG TAB PO SCH (08:17)
[2016-10-28] MEDS: MEGESTROL ACETATE SUSP 400 MG/10 ML CUP PO SCH (08:19)
[2016-10-28] MEDS: PANTOPRAZOLE SODIUM 40 MG VIAL IV PUSH SCH (08:21)
--- NOTE | 2016-10-28 16:14 | HHI.PR ---
Subjective Remarks Patient is very anxious, he told me he feels frustrated he wants to go home but yet he is scared I had a super lengthy discussion with him and with the nurse, at first he didn' t want to go home, he also didn't want to go to the [facility] hospice he is very anxious, then he came back and said he wanted to go home and be with his and cat he doesn't want to wait to go to the hospice facility Objective Vitals Vital Signs Date Time Temp Pulse Resp B/P Pulse Ox O2 Delivery O2 Flow Rate FiO2 10/28/16 13:16 92 10/28/16 12:00 98.1 80 19 130/56 100 10/28/16 08:00 96.9 93 16 109/61 98 10/28/16 06:30 16 10/28/16 06:03 88 10/28/16 04:00 98.2 89 18 115/58 99 10/28/16 00:00 98.7 91 18 124/59 95 10/27/16 20:00 98.3 91 16 100/56 100 I/O 10/27/16 10/27/16 10/27/16 10/28/16 10/28/16 10/28/16 07:00 15:00 23:00 07:00 15:00 23:00 Intake Total 0 ml 480 ml 480 ml Output Total 300 ml 75 ml Balance 0 ml 480 ml 180 ml -75 ml Intake Oral 0 ml 480 ml 480 ml Output Urine Total 300 ml Drainage Total 75 ml # Voids 3 1 1 # Bowel Movements 2 1 1 Result Diagram: 10/27/16 1904 10/27/16 1016 Objective Remarks GENERAL: This is a well-nourished, well-developed patient, in no apparent distress. CARDIOVASCULAR: Regular rate and rhythm without murmurs, gallops, or rubs. RESPIRATORY: Clear to auscultation. Breath sounds equal bilaterally. No wheezes , rales, or rhonchi. GASTROINTESTINAL: Abdomen soft, non-tender, nondistended. Normal active bowel sounds, duodenal bag in place MUSCULOSKELETAL: Extremities without clubbing, cyanosis, or edema. NEURO: Alert & Oriented x4 to person, place, time, situation. Moves all ext x4 Procedures 10/26- EGD A/P Assessment and Plan 66-year-old admitted for Severe anemia likely GI bleeding source. S/P EGD- gastritis Iron deficiency secondary to GI loss CT of abdomen/Lungs with mets/duodenal leak S/P Transfuse 2 units RBC H and H stable. S/PEGD- esophagitis, whitish deposit suspicious for candidiasis Protonix 40 mg IV daily- change to po on DC - for SBFT showed duodenal leakage in the soft tissue, Dr. Siegel colorectal surgeon consulted recommended discharge to hospice facility however patient is very anxious and he does not want to wait, he understand there is a possibility for a readmission if he gets anxious after discharge he still wants to go home, I will place discharge order for him to go home with hospice service and then he 'll decide ongoing to their facility. Earlier before the weekend there was a plan to switch him to [facility] however this doesn't cover the area where he lives, but yet he still not wanting to go with [facility], I believe patient is anxious and hospice service is mandatory to be with the dischargeD/W nurse and patient in length as well as charge nurse - started on diflucan - IV Iron daily x 3 days till 10/27 - GI/Hematology ff Cleared for discharge with hospice NSTEMI- from demand ischemia appreciate Dr. Sesay seeing patient- Lopressor up to 25 mg po bid nitrol ointment 1/2 in to ant chest wall tid No aspirin due to GI bleed and severe anemia Right lung masses suggestive of mets- History of malignancy- in the past ff by Dr. Delgado -Oncology ff- OP ff up chronic pain- back pain T of spine = no mets po pain meds prn now per patient - states has been off Dexamethasone for 3 weeks- DC dexamethasone Acute on Chronic kidney insufficiency creatinine is near baseline Mechanical DVT prophylaxis. Darnell Simmons MD Oct 28, 2016 16:14
--- NOTE | 2016-10-28 16:15 | HHI.DS ---
Discharge Summary Admission Date Oct 24, 2016 at 14:25 Discharge Date: Oct 28, 2016 Admitting Diagnosis anemia, upper GI bleed, ischemic chest pain (1) Stroke ICD Code: I63.9 (2) HTN (hypertension) ICD Code: I10 (3) Upper GI bleed ICD Code: K92.2 (4) Colon cancer ICD Code: C18.9 (5) Severe anemia ICD Code: D64.9 (6) Chest pain ICD Code: R07.9 Procedures 10/26- EGD Brief History - From Admission Patient is a 66-year-old male with known history of colorectal cancer stage IV had colorectal surgery postop complicated by development of abscess and therefore did not receive any adjuvant chemotherapy. Patient also have baseline chronic kidney insufficiency baseline creatinine of 2.0. Patient presented to the ER complaining of generalized weakness has been going on for the past 6-8 weeks now. To the point that patient had a near syncopal episode yesterday. Patient states that he is more into homeopathic medication. Patient also has been complaining of right flank pain denies any hematemesis melena hematochezia hematuria or any bleeding tendencies. Persistence of this generalized weakness prompted consult to ER where on evaluation was noted to have a hemoglobin of 4.8 and hematocrit of 15.7. Patient is now admitted for further evaluation and management. Patient also reports of having chest discomfort/feeling of indigestion or reflux description. Denies any nausea or vomiting. EKG shows sinus tachycardia with some minimal ST depression. Patient on chronic dexamethasone 4 chronic back pain CBC/BMP: 10/27/16 1904 10/27/16 1016 Significant Findings Laboratory Tests Test 10/27/16 10/27/16 10:16 19:04 White Blood Count 14.3 TH/MM3 19.3 TH/MM3 (4.0-11.0) (4.0-11.0) Red Blood Count 3.51 MIL/MM3 3.47 MIL/MM3 (4.50-5.90) (4.50-5.90) Hemoglobin 8.6 GM/DL 8.6 GM/DL (13.0-17.0) (13.0-17.0) Hematocrit 27.2 % 27.2 % (39.0-51.0) (39.0-51.0) Mean Corpuscular Volume 77.4 FL 78.3 FL (80.0-100.0) (80.0-100.0) Mean Corpuscular Hemoglobin 24.4 PG 24.8 PG (27.0-34.0) (27.0-34.0) Mean Corpuscular Hemoglobin 31.6 % 31.7 % Concent (32.0-36.0) (32.0-36.0) Red Cell Distribution Width 19.2 % 19.6 % (11.6-17.2) (11.6-17.2) Platelet Count 460 TH/MM3 (150-450) Neutrophils (%) (Auto) 80.7 % 82.9 % (16.0-70.0) (16.0-70.0) Neutrophils # (Auto) 11.5 TH/MM3 16.0 TH/MM3 (1.8-7.7) (1.8-7.7) Monocytes # (Auto) 1.1 TH/MM3 1.4 TH/MM3 (0-0.9) (0-0.9) Sodium Level 135 MEQ/L (136-145) Estimat Glomerular Filtration 55 ML/MIN (>89) Rate Random Glucose 115 MG/DL (74-106) Calcium Level 8.0 MG/DL (8.5-10.1) Neutrophils % (Manual) 74 % (16-70) Monocytes % 11 % (0-8) Neutrophils # (Manual) 15.4 TH/MM3 (1.8-7.7) Myelocytes 1 % (0-0) Platelet Estimate HIGH (NORMAL) PE at Discharge GENERAL: This is a well-nourished, well-developed patient, in no apparent distress. CARDIOVASCULAR: Regular rate and rhythm without murmurs, gallops, or rubs. RESPIRATORY: Clear to auscultation. Breath sounds equal bilaterally. No wheezes , rales, or rhonchi. GASTROINTESTINAL: Abdomen soft, non-tender, nondistended. Normal active bowel sounds, duodenal bag in place MUSCULOSKELETAL: Extremities without clubbing, cyanosis, or edema. NEURO: Alert & Oriented x4 to person, place, time, situation. Moves all ext x4 Hospital Course 66-year-old admitted for Severe anemia likely GI bleeding source. S/P EGD- gastritis Iron deficiency secondary to GI loss CT of abdomen/Lungs with mets/duodenal leak S/P Transfuse 2 units RBC H and H stable. S/PEGD- esophagitis, whitish deposit suspicious for candidiasis Protonix 40 mg IV daily- change to po on DC - for SBFT showed duodenal leakage in the soft tissue, Dr. Siegel colorectal surgeon consulted recommended discharge to hospice facility however patient is very anxious and he does not want to wait, he understand there is a possibility for a readmission if he gets anxious after discharge he still wants to go home, I will place discharge order for him to go home with hospice service and then he 'll decide ongoing to their facility. Earlier before the weekend there was a plan to switch him to [facility] however this doesn't cover the area where he lives, but yet he still not wanting to go with [facility], I believe patient is anxious and hospice service is mandatory to be with the dischargeD/W nurse and patient in length as well as charge nurse - started on diflucan - IV Iron daily x 3 days till 10/27 - GI/Hematology ff Cleared for discharge with hospice NSTEMI- from demand ischemia appreciate Dr. Sesay seeing patient- Lopressor up to 25 mg po bid nitrol ointment 1/2 in to ant chest wall tid No aspirin due to GI bleed and severe anemia Right lung masses suggestive of mets- History of malignancy- in the past ff by Dr. Delgado -Oncology ff- OP ff up chronic pain- back pain T of spine = no mets po pain meds prn now per patient - states has been off Dexamethasone for 3 weeks- DC dexamethasone Acute on Chronic kidney insufficiency creatinine is near baseline Mechanical DVT prophylaxis. Pt Condition on Discharge: Deteriorating Discharge Disposition: Hospice/ Home Discharge Time: > 30 minutes Discharge Instructions DIET: Follow Instructions for: Heart Healthy Diet Activities you can perform: Weight Bearing as Sonal Follow up Referrals: Cardiology - 1 Week with Sabina Sesay MD Gastroenterology - 3 Weeks with Candi Matthews MD Oncology - 1 Week with JAEK PCP Follow-up New Medications: Ferrous Sulfate (Ferrous Sulfate) 325 Mg Tab 325 MG PO BID Nutritional Supplement Days 30 Ref 0 TAB Pantoprazole (Protonix) 40 Mg Tab 40 MG PO DAILY Ulcer Prevention #30 Ref 0 TAB Fluconazole (Fluconazole) 100 Mg Tab 100 MG PO DAILY CANESO Days 20 Ref 0 TAB Metoprolol Tartrate (Metoprolol Tartrate) 25 Mg Tab 25 MG PO BID CAD Days 30 TAB Nitroglycerin Topical (Nitro-Bid Topical) 2 % Oint 0.5 INCH TOPICAL Q8HR Chest Pain Days 30 TUBE Continued Medications: Fentanyl Patch 72 HR (Fentanyl Patch 72 HR) 100 Mcg/Hr Patch 100 MCG T-DERMAL Q72H Remove old patch when new one placed. Pain Management #10 Ref 0 PATCH Megestrol Liq (Megace Liq) 40 Mg/Ml Susp 10 ML PO BID Improve Appetite Ref 0 ML Oxycodone (Oxycodone) 20 Mg Tab 20 MG PO Q2HR PRN PAIN Ref 0 TAB Discontinued Medications: Amlodipine (Amlodipine) 5 Mg Tab 5 MG PO DAILY Blood Pressure Management #30 Ref 0 TAB Dexamethasone (Dexamethasone) 2 Mg Tab 2 MG PO DAILY #30 Ref 0 TAB Darnell Simmons MD Oct 28, 2016 16:15
[2016-10-29] MEDS ORDERED: GETGO ROLLING W1 MI1 (09:35)
== END 2016-10-28 18:45 | disposition hospice, home (50) | DRG 377 ==
LOC: NEPE 12:18 → NEDA 14:25 → N04B 16:39
PROVIDERS: ADMIT Hospitalist; ATTEND Hospitalist
PROC: 30233N1 Transfusion of Nonautologous Red Blood Cells into Peripheral Vein, Percutaneous Approach (ICD-10-PCS; 2016-10-24)
PROC: 0DB68ZX Excision of Stomach, Via Natural or Artificial Opening Endoscopic, Diagnostic (ICD-10-PCS; 2016-10-26)
PROC: 0DB38ZX Excision of Lower Esophagus, Via Natural or Artificial Opening Endoscopic, Diagnostic (ICD-10-PCS; 2016-10-26)
PROC: 0DB98ZX Excision of Duodenum, Via Natural or Artificial Opening Endoscopic, Diagnostic (ICD-10-PCS; principal; 2016-10-26 09:05)
DX: K92.2 Gastrointestinal hemorrhage, unspecified (principal); I21.4 Non-ST elevation (NSTEMI) myocardial infarction; K31.6 Fistula of stomach and duodenum; C78.01 Secondary malignant neoplasm of right lung; D50.0 Iron deficiency anemia secondary to blood loss (chronic); F17.200 Nicotine dependence, unspecified, uncomplicated; N13.30 Unspecified hydronephrosis; I12.9 Hypertensive chronic kidney disease with stage 1 through stage 4 chronic kidney disease, or unspecified chronic kidney disease; K44.9 Diaphragmatic hernia without obstruction or gangrene; K29.70 Gastritis, unspecified, without bleeding; K31.89 Other diseases of stomach and duodenum; D64.9 Anemia, unspecified; M54.9 Dorsalgia, unspecified; N18.9 Chronic kidney disease, unspecified; Z66 Do not resuscitate; G89.29 Other chronic pain; R00.0 Tachycardia, unspecified; M19.90 Unspecified osteoarthritis, unspecified site; I73.9 Peripheral vascular disease, unspecified; F41.9 Anxiety disorder, unspecified; R19.01 Right upper quadrant abdominal swelling, mass and lump; K21.0 Gastro-esophageal reflux disease with esophagitis; I25.10 Atherosclerotic heart disease of native coronary artery without angina pectoris; N52.9 Male erectile dysfunction, unspecified; Z51.5 Encounter for palliative care; Z79.52 Long term (current) use of systemic steroids; Z87.442 Personal history of urinary calculi; Z85.048 Personal history of other malignant neoplasm of rectum, rectosigmoid junction, and anus; W18.30XA Fall on same level, unspecified, initial encounter
CPT/HCPCS: 36430; 71010; 74176; 74245; 80048; 80053; 82607; 82728; 82746; 83540; 83550; 83690; 84484; 85007; 85014; 85018; 85025; 85027; 85610; 85730; 86850; 86900; 86901; 86920; 88305; 88312; 88341; 88342; 93005; 96361; 96374; 96375; 96376; C9113; J1170; J1756; J2405; J7030; P9016